=== PATIENT | female | born 1955 | race Caucasian/White ===

== ENCOUNTER → 2018-12-06 15:23 | Outpatient (CLI) | payer OTHER, SELFPAY ==
--- NOTE | 2018-12-06 | DI.RAD.S_ITS ---
PROCEDURE: XR TIBIA FIBULA RT 2V INDICATIONS: NEUROFIBRAMATOSIS TECHNIQUE: 2 views of the tibia and fibula were acquired. COMPARISON: None. FINDINGS: Bones: No fractures or dislocations. No suspicious bony lesions. Soft tissues: Posterior mid calf soft tissue swelling IMPRESSION: Posterior mid calf swelling. Further evaluation of the soft tissues could be performed with contrast-enhanced MRI as clinically warranted. Dictated by: Heath Taylor M.D. on 12/06/2018 at 16:05 Approved by: Heath Taylor M.D. on 12/06/2018 at 16:06
== END ==
PROVIDERS: Family Provider Family Medicine; PCP Family Medicine; Visit Provider Family Medicine
DX: Q85.00 Neurofibromatosis, unspecified (principal); M79.89 Other specified soft tissue disorders
CPT/HCPCS: 73590

== ENCOUNTER → 2019-01-14 12:53 | Outpatient (CLI) | payer OTHER, SELFPAY ==
--- NOTE | 2019-01-14 | DI.MRI.S_ITS ---
PROCEDURE: MR LOWER LEG LT WO/W CON INDICATIONS: Neurofibramatosis TECHNIQUE: Noncontrast coronal T1 spin echo and STIR, sagittal T1 spin echo with fat saturation and STIR, axial T1 spin echo and T2 fast spin echo with fat saturation. After the administration of contrast, axial/sagittal/coronal T1 spin echo with fat saturation through the left lower leg. COMPARISON: [facility], CR, XR TIBIA FIBULA LT 2V, 12/06/2018, 15:30. FINDINGS: Image quality: Diagnostic. Bones: The visualized bone marrow demonstrates normal signal on all sequences. The overlying cortex appears intact. No abnormal intraosseous enhancement. Soft tissues: 2 ovoid heterogeneous mass is identified along the proximal to mid aspect of the left lower leg. Within the anterior compartment, centered along the anterior tibial neurovascular bundle, there is an ovoid lesion identified along the proximal aspect of the left lower leg, which demonstrates relatively homogeneous increased signal on the fluid sensitive sequences that demonstrates intermediate to low signal on the T1 images and corresponding heterogeneous enhancement predominantly seen along the periphery. This lesion measures at least 7.6 cm craniocaudal by 3.6 cm AP by 3.3 cm transverse (image 17, series 11 and image 24, series 13). The other lesion demonstrates very similar imaging characteristics and has an ovoid appearance and is located along the lateral aspect of the mid half, centered within the lateral gastrocnemius muscle, which measures approximately 5.2 cm craniocaudal by 3.5 cm AP by 3.9 cm transverse (see image 6, series 11 and image 33, series 13). Both of these structures demonstrate subtle proximal and distal tapering. There is slight muscle edema identified along the proximal and distal margins of the lesion within the anterior compartment and the lesion within the posterior compartment. No additional masses or lesions are evident. Included portions of the right lower leg are unremarkable. No loculated or drainable fluid collections are identified. Please note that the ligamentous, tendinous, and cartilaginous structures of the knee and ankle are not adequately evaluated more completely included on this examination. IMPRESSION: 1. There are 2 solid lesions identified along the proximal to mid aspect of the left lower leg, which correlate with the abnormal appearance on the conventional radiograph. These lesions are most likely related to the patient's neurofibromatosis and probably represent peripheral nerve sheath tumors. However, soft tissue sarcoma cannot be excluded. Please consider biopsy for definitive characterization. 3 month followup MR imaging with contrast is recommended. 2. No suspicious bony lesions. Dictated by: Darryn Issa M.D. on 01/14/2019 at 15:51 Approved by: Darryn Issa M.D. on 01/14/2019 at 16:01
== END ==
PROVIDERS: Family Provider Family Medicine; PCP Family Medicine; Visit Provider Family Medicine
DX: Q85.00 Neurofibromatosis, unspecified (principal)
CPT/HCPCS: 73720; A9579

== ENCOUNTER → 2019-01-29 16:14 | Outpatient (CLI) | payer OTHER, SELFPAY ==
--- NOTE | 2019-01-29 | DI.US.S_ITS ---
PROCEDURE: US THYROID INDICATIONS: THYROTOXOSIS, UNSPECIFIED TECHNIQUE: Real-time scanning was performed of the thyroid gland, with image documentation. COMPARISON: None. FINDINGS: Right: Thyroid lobe measures 4.8 x 1.9 x 2.1 cm, and is diffusely heterogeneous in echotexture. Left: Thyroid lobe measures 4.5 x 2.0 x 2.0 cm, and is diffusely heterogeneous in echotexture. Isthmus: 3.0 mm thick. IMPRESSION: Diffusely heterogeneous thyroid. No focal nodularity. Dictated by: Hemal GUZMAN Interpreted: Che Whitfield MD on 01/29/2019 at 17:34 Approved by: Che Whitfield M.D. on 01/29/2019 at 17:59
== END ==
PROVIDERS: PCP Family Medicine; Visit Provider Family Medicine
DX: E05.90 Thyrotoxicosis, unspecified without thyrotoxic crisis or storm (principal)
CPT/HCPCS: 76536

== ENCOUNTER → 2019-05-14 08:02 | Outpatient (CLI) | payer OTHER, SELFPAY ==
--- NOTE | 2019-05-14 | DI.MRI.S_ITS ---
PROCEDURE: MR THORACIC SPINE WO/W CON INDICATIONS: Neurofibromatosis, unspecified TECHNIQUE: Noncontrast sagittal T1 spin echo and T2 fast spin echo, sagittal STIR, axial T1 and T2 fast spin echo through the thoracic spine. After the administration of contrast, axial and sagittal T1 spin echo with fat saturation through the thoracic spine. COMPARISON: [facility], CT, SOFT TISSUE NECK W CONTRAST, 01/17/2007, 8:35. [facility], MR, T-SPINE WITH AND WITHOUT CONTR, 12/03/2009, 17:24. FINDINGS: Image quality: Excellent. Alignment and curvature: There is normal bony alignment. Marrow: Marrow is of normal overall signal. No acute vertebral body compression fractures. Intraosseous hemangiomas present at T8 and at T12. Spinal cord: Visualized spinal cord is of normal signal and size, without abnormal enhancement. Paraspinous soft tissues: There are multiple paraspinous soft tissue masses are includin. A peripherally enhancing, centrally T2 hyperintense/T1 hypointense left apical mass which measures 3.9 x 4.0 x 5.8 cm (previously measured 2.3 x 2.0 x 3.3 cm on the comparison MRI dated 12/03/09). There is bony erosion of the posterior aspect of the adjacent rib. 2. A right homogeneously enhancing subdiaphragmatic mass which measures 5.2 x 4.9 x 3.6 cm (previously measured 2.6 x 1.7 cm in the axial plane). There is erosion of the posterior aspect of the adjacent rib. 3. A peripherally enhancing, centrally T2 hyperintense/T1 hypointense lesion within the right renal fossa which measures 10.5 x 8.0 x 8.6 cm (previously measured 4.4 x 3.3 cm in axial plane). This displaces the kidney anteriorly and inferiorly. 4. 5 mm diameter enhancing mass within the thecal sac at the level of L2. This region was not evaluated on the prior MRI from 12/03/09. 5. 4 mm in diameter left-sided intrathecal enhancing mass adjacent to the cauda equina at T12, unchanged from the prior study (Series 16, image 24). 6. Right-sided 4 mm diameter enhancing mass adjacent to the cauda which is slightly increased from 3 mm on the prior study (316, image 23). There is a right-sided homogeneously enhancing T2 hyperintense, T1 hypointense mass at the carotid bifurcation which measures 1.8 x 2.0 cm on the axial images (series 10, image 10). This measured 1.7 x 1.6 cm on the study dated 01/17/07. Miscellaneous: Central canal and foramina appear widely patent at all scanned levels. IMPRESSION: 1. Multiple paraspinous soft tissue masses as described above, all of which have increased in size when compared with the prior MRI dated 12/03/09. 2. Subcentimeter enhancing intrathecal mass lesions, 2 of which were previously characterized and are similar or slightly increased in size to the prior study. 3. No canal stenosis or foraminal narrowing. Normal spinal alignment. 4. Homogeneously enhancing mass at the right carotid bifurcation, incompletely characterized on this study. This is slightly increased when compared with the prior CT dated 01/17/07, and likely represents a neurofibroma. Dictated by: Kylee Crain M.D. on 05/14/2019 at 10:15 Approved by: Kylee Crain M.D. on 05/14/2019 at 11:24
--- NOTE | 2019-05-14 | DI.MRI.S_ITS ---
PROCEDURE: MR LUMBAR SPINE WO/W CON INDICATIONS: Neurofibromatosis, unspecified TECHNIQUE: Noncontrast sagittal T1 spin echo and T2 fast spin echo, sagittal STIR, axial T1 and T2 fast spin echo through the lumbar spine. In cases with scoliosis, additional coronal T2 fast spin echo may be performed. After the administration of contrast, sagittal and axial T1 spin echo with fat saturation through the lumbar spine. COMPARISON: None. FINDINGS: Image quality: Excellent. Alignment and curvature: There is normal bony alignment. Marrow: Marrow is of normal overall signal. No acute vertebral body compression fractures. No suspicious marrow enhancement. Spinal cord: Conus medullaris terminates at the T12 level. Visualized spinal cord demonstrates normal signal, without suspicious enhancement. Paraspinous soft tissues: A predominantly cystic, peripherally enhancing mass is partially characterized within the right renal fossa and is better characterized on the MRI of the thoracic spine from the same date. Visualized portions of the kidneys have a normal appearance with subcentimeter cortical cystic lesions present. No hydronephrosis. The right ovary is visualized adjacent to the psoas musculature and is grossly unremarkable. An ill-defined T2 hyperintense, T1 hypointense heterogeneously enhancing mass is present within the left psoas musculature which may represent a small neurofibroma (series 10, image 23). A 0.8 cm in diameter enhancing mass is present within the left paraspinous musculature suggesting small neurofibroma (series 10, image 7). Left-sided intrathecal enhancing subcentimeter mass lesions at T12 and L2 characterized on the associated T-spine from the same date are redemonstrated. A right-sided 4 mm and a central 4 mm enhancing intrathecal mass are visualized at L2-3, likely representing small fibroadenomas. Similarly, a homogeneously enhancing circumscribed 8mm diameter intrathecal mass is present at L4-5 suggesting a intrathecal neurofibroma. 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 L1-L2: Normal appearance. L2-L3: Mild disc desiccation and height loss. Broad-based disc bulge. Mild facet ligamentum flavum hypertrophy. Mild canal stenosis. No neural foraminal stenosis. L3-L4: Mild disc desiccation. Broad-based disc bulge. Mild facet ligamentum flavum hypertrophy. No canal stenosis. Mild bilateral neuroforaminal stenosis. L4-L5: Moderate desiccation and height loss. Broad-based disc bulge. Moderate facet ligamentum flavum hypertrophy. Mild canal stenosis. Mild left and moderate right neuroforaminal stenosis. L5-S1: Moderate disc desiccation and height loss. Moderate facet ligamentum flavum hypertrophy. No canal stenosis. Mild left and moderate right neural foraminal stenosis. IMPRESSION: 1. Disc desiccation and height loss throughout the lumbar spine most severe at L4-5 and L5-S1. 2. Moderate right neuroforaminal stenosis at L4-5 and L5-S1. 3. Mild canal stenosis of the lumbar spine at L4-5. 4. Multiple subcentimeter intrathecal enhancing mass lesions consistent with neurofibromas. 5. 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 Dictated by: Kylee Crain M.D. on 05/14/2019 at 11:27 Approved by: Kylee Crain M.D. on 05/14/2019 at 11:35
== END ==
PROVIDERS: PCP Family Medicine; Visit Provider Neurological Surgery
DX: Q85.00 Neurofibromatosis, unspecified (principal); M48.061 Spinal stenosis, lumbar region without neurogenic claudication; M48.07 Spinal stenosis, lumbosacral region
CPT/HCPCS: 72157; 72158; A9579

== ENCOUNTER → 2020-01-21 10:57 | Outpatient (CLI) | payer OTHER, SELFPAY ==
--- NOTE | 2020-01-21 10:58 | DI.RAD.S_ITS ---
PROCEDURE: XR ANKLE LT MIN 3V INDICATIONS: pain in left ankle TECHNIQUE: 3 views of the ankle were acquired. COMPARISON: [facility], , ANKLE 2 VIEWS LEFT, 02/25/2017, 21:01. FINDINGS: Bones: Fracture of the distal fibula at the level of the syndesmosis. Near anatomic alignment. No dislocations. Ankle mortise is normally aligned. No suspicious bony lesions. Small plantar calcaneal spur. Soft tissues: Swelling at the lateral malleolus. No tibiotalar joint effusion. Achilles tendon appears normal. IMPRESSION: Fracture of the distal fibula at the level of the syndesmosis. Near anatomic alignment. Dictated by: Guevara Granger M.D. on 01/21/2020 at 10:12 Approved by: Guevara Granger M.D. on 01/21/2020 at 10:13
== END ==
PROVIDERS: PCP Family Medicine; Referring Provider Family Medicine; Visit Provider Nurse Practitioner
DX: M25.572 Pain in left ankle and joints of left foot (principal); S82.832A Other fracture of upper and lower end of left fibula, initial encounter for closed fracture
CPT/HCPCS: 73610

== ENCOUNTER → 2020-05-11 07:16 | Outpatient (CLI) | payer OTHER, SELFPAY ==
[2020-05-11 07:44] LABS: Add Manual Diff / Slide Review NO; Basophils Absolute Auto 100 /uL (0-100); Basophils Percent Auto 1.4 % (0-2); Eosinophils Absolute Auto 300 /uL (0-450); Eosinophils Percent Auto 5.3 % (2-4); Hematocrit 41.1 % (36-46); Hemoglobin 13.7 g/dL (12.0-16.0); Lymphocytes Absolute Auto 2100 /uL (1100-4500); Lymphocytes Percent Auto 40.6 % (25-40); Mean Corpuscular HGB Conc 33.5 % (30-36); Mean Corpuscular Hemoglobin 30.6 PG (26-34); Mean Corpuscular Volume 91.3 fL (80-100); Monocytes Absolute Auto 500 /uL (0-900); Monocytes Percent Auto 9.5 % (3-14); Neutrophils Absolute Auto 2200 /uL (1500-7000); Neutrophils Percent Auto 43.2 % (50-75); Platelet Count 284 X10^3/uL (150-400); Red Cell Distribution Width 13.1 % (11.6-14.8); White Blood Cell Count 5.2 X10^3/uL (4.5-11.0)
[2020-05-11 07:56] LABS: Alanine Aminotransferase 23 IU/L (<35); Albumin 4.2 g/dL (3.5-5.0); Albumin Globulin Ratio 1.3 (1.0-2.8); Alkaline Phosphatase 109 U/L (38-126); Aspartate Aminotransferase 30 IU/L (14-36); BUN Creatinine Ratio 23.2 (6-22); Bilirubin Total 0.4 mg/dL (0.2-1.3); Blood Urea Nitrogen 13 mg/dL (7-17); Calcium 9.2 mg/dL (8.4-10.2); Carbon Dioxide 29 mmol/L (22-32); Chloride 106 mmol/L (98-107); Cholesterol 166 mg/dL (140-199); Estimated Glomerular Filt Rate > 60.0 mL/min (>60); Globulin 3.3 g/dL (1.7-4.1); Glucose 98 mg/dL (80-110); HDL Cholesterol 71 mg/dL (40-60); HEMOLYSIS < 15 (0-50); LDL Cholesterol Calculated 82 mg/dL (<100); Sodium 140 mmol/L (137-145); Total Protein 7.5 g/dL (6.3-8.2); Triglycerides 67 mg/dL (35-150)
[2020-05-11 08:43] LABS: Free T4, Direct Thyroxine 0.86 ng/dL (0.78-2.19); Vitamin D 25 Hydroxy (D3) 31.4 ng/mL (30.0-100.0)
[2020-05-11 08:57] LABS: Thyroid Stimulating Hormone 5.47 uIU/mL (0.47-4.68)
[2020-05-12 06:46] LABS: Triiodothyronine T3 Total 106 ng/dL (71-180)
== END ==
PROVIDERS: PCP Internal Medicine; Referring Provider Internal Medicine; Visit Provider Internal Medicine
DX: Z13.220 Encounter for screening for lipoid disorders (principal)
CPT/HCPCS: 36415; 80053; 80061; 82306; 84439; 84443; 84480; 85025

== ENCOUNTER → 2020-06-24 15:58 | Outpatient (CLI) | payer OTHER, SELFPAY ==
--- NOTE | 2020-06-24 | DI.MRI.S_ITS ---
PROCEDURE: MR CERVICAL SPINE WO/W CON INDICATIONS: BENIGN NEOPLASM TECHNIQUE: Noncontrast sagittal T1 spin echo and T2 fast spin echo, sagittal STIR, foraminal oblique sagittal T2 fast spin echo, axial gradient echo or T2 fast spin echo through the cervical spine. After the administration of contrast, axial and sagittal T1 spin echo with fat saturation through the cervical spine. COMPARISON: [facility], MR, MR THORACIC SPINE WO/W CON, 05/14/2019, 8:16. [facility], MR, MR LUMBAR SPINE WO/W CON, 06/24/2020, 17:30. [facility], MR, MR THORACIC SPINE WO/W CON, 06/24/2020, 16:59. [facility], MR, C-SPINE WITH&WITHOUT CONTRAST, 12/03/2009, 17:08. FINDINGS: Image quality: Excellent. Alignment and curvature: Reversal of the normal cervical lordosis is seen, with the apex at the C5 level. There is minimal anterolisthesis seen at the C4-C5 level. Minimal retrolisthesis is seen at C5-C6. Marrow: Marrow is normal in overall signal, without suspicious enhancement. Spinal cord: Visualized spinal cord has normal size and signal. No cerebellar tonsillar herniation. No abnormal intramedullary enhancement. Paraspinous soft tissues: There is a left-sided thoracic mass partially seen. On the prior cervical spine MRI from 2009, there was note made a mass involving the left supraclavicular region. This is not definitely seen on the current study. Note is made of prominent opacification of the left maxillary sinus. C2-3: The disc height is well-preserved. Loss of disc signal is seen at this level. A mild degree of generalized disc osteophyte complex is seen. Moderate facet joint hypertrophy is seen. No significant neural foraminal or central canal narrowing can be seen. C3-4: The disc height is well-preserved. Loss of disc signal is seen at this level. A mild degree of generalized disc osteophyte complex is seen. Moderate facet joint hypertrophy is seen. There is mild right-sided and no left-sided neural foraminal narrowing seen. No significant central canal narrowing is seen. C4-5: Mild loss of disc height is seen. Loss of disc signal is seen. Moderate disc osteophyte complex is seen, which is eccentric to the right. There is moderate to prominent right-sided and mild left-sided neural foraminal narrowing seen. There is moderate right-sided and no left-sided neural foraminal narrowing seen. Mild to moderate central canal narrowing is seen. C5-6: At least moderate loss of disc height and disc signal can be seen. At least moderate disc osteophyte complex is seen. Uncovertebral joint hypertrophy is seen at this level. Moderate facet joint hypertrophy is seen. There is at least moderate bilateral neural foraminal narrowing seen, left worse than right. Moderate central canal narrowing is seen. There is associated mass effect upon the ventral spinal cord. C6-7: The disc height is well-preserved. Loss of disc signal is seen at this level. A mild degree of generalized disc osteophyte complex is seen. Mild to moderate facet hypertrophy is seen. No significant neural foraminal or central canal narrowing can be seen. C7-T1: No significant abnormality is seen. IMPRESSION: Multiple levels of cervical spine degenerative change are seen, which are worst at the C5-C6 level. These degenerative changes have progressed compared to 2010. The previously seen left supraclavicular mass is not well seen on the current study. If there is strong clinical concern for a mass within this region, please consider a follow-up soft tissue neck CT with IV contrast. Left-sided thoracic mass seen. Please see the accompanying thoracic spine MRI report. Prominent opacification of the left maxillary sinus can be seen. Please correlate with paranasal sinus disease. Dictated by: Bruce Marquez M.D. on 06/25/2020 at 16:40 Approved by: Bruce Marquez M.D. on 06/25/2020 at 16:51
--- NOTE | 2020-06-24 16:00 | DI.MRI.S_ITS ---
PROCEDURE: MR THORACIC SPINE WO/W CON INDICATIONS: Neurofibromatosis, Benign neoplasm of peripheral n TECHNIQUE: Noncontrast sagittal T1 spin echo and T2 fast spin echo, sagittal STIR, axial T1 and T2 fast spin echo through the thoracic spine. After the administration of contrast, axial and sagittal T1 spin echo with fat saturation through the thoracic spine. COMPARISON: [facility], MR, T-SPINE WITH AND WITHOUT CONTR, 12/03/2009, 17:24. [facility], MR, MR LUMBAR SPINE WO/W CON, 06/24/2020, 17:30. [facility], MR, MR CERVICAL SPINE WO/W CON, 06/24/2020, 16:36. [facility], MR, MR THORACIC SPINE WO/W CON, 05/14/2019, 8:16. FINDINGS: Image quality: Excellent. Alignment and curvature: There is normal bony alignment. Marrow: Marrow is of normal overall signal. Scattered foci are seen, which are hyperintense on T1-weighted and T2-weighted imaging, which are most consistent with benign vertebral body hemangiomas. No acute vertebral body compression fractures. Spinal cord: Visualized spinal cord is of normal signal and size, without abnormal enhancement. There is intrathecal nodule seen on the right at the T12 level that measures 5-6 mm, as on series 14, image 18. On the prior study, this measured 4 mm. An additional enhancing nodule can be seen along the posterior aspect of the nerve roots at the L2 level, as on series 6, image 32 measuring 8 mm. On the prior study, this measured up to 5 mm. Paraspinous soft tissues: Numerous masses are again seen, which are as follows, from superior to inferior: There is a mildly T2 hyperintense, mildly enhancing lesion partially seen involving the right paratracheal neck, adjacent to the thyroid, which measures 2.2 x 2.1 cm in greatest axial dimension, as on series 15, image 14 and on series 7, image 15. This is minimally increased in size compared to 2019. Within the left paraspinous region at the T2 level, just anterior to the ribs, there is an ovoid mass that measures 5.5 by 4.4 cm in greatest axial dimension, which measures 4 x 5.1 cm in 2019, when measured in a similar fashion. Moderate rim enhancement can be seen. On the right, just anterior to the 9th rib, there is a heterogeneous mass which demonstrates an irregular, stippled appearance on the T2 images and demonstrates prominent heterogeneous enhancement. This measures 3.8 by 5.3 cm in greatest axial dimension, which is slightly increased in size compared to 2019, when it measured 3.6 x 4.9 cm, when measured in a similar fashion. Just inferior to this lesion, there is a partially visualized prominent mass that demonstrates T2 hyperintensity within its midportion, which measures at least 9 by 6 cm in greatest axial dimension. This is centered at the approximate T12 level. There is moderate rim enhancement seen. On the prior study, this measured 8 x 8.6 cm in greatest axial dimension. Miscellaneous: Generalized mild degenerative changes are seen, including mild disc space narrowing at the T11-T12 level, without significant neural foraminal or central canal narrowing. IMPRESSION: Numerous paraspinous nodules are seen, which have each increased in size compared to 2019. The imaging appearance is consistent with the given clinical history of neurofibromas. There is faint visualization of intrathecal nodules also seen inferiorly. Please see the accompanying lumbar spine report. Dictated by: Bruce Marquez M.D. on 06/25/2020 at 16:56 Approved by: Bruce Marquez M.D. on 06/25/2020 at 17:13
--- NOTE | 2020-06-24 16:00 | DI.MRI.S_ITS ---
PROCEDURE: MR LUMBAR SPINE WO/W CON INDICATIONS: Neurofibromatosis, Benign neoplasm of peripheral n TECHNIQUE: Noncontrast sagittal T1 spin echo and T2 fast spin echo, sagittal STIR, axial T1 and T2 fast spin echo through the lumbar spine. In cases with scoliosis, additional coronal T2 fast spin echo may be performed. After the administration of contrast, sagittal and axial T1 spin echo with fat saturation through the lumbar spine. COMPARISON: [facility], MR, MR THORACIC SPINE WO/W CON, 06/24/2020, 16:59. [facility], MR, MR CERVICAL SPINE WO/W CON, 06/24/2020, 16:36. FINDINGS: Image quality: This examination is limited by involuntary motion artifact. Alignment and curvature: There is minimal retrolisthesis at L5-S1. Marrow: Marrow is of normal overall signal. No acute vertebral body compression fractures. No suspicious marrow enhancement. Spinal cord: Conus medullaris terminates at the L1 level. Visualized spinal cord demonstrates normal signal, without suspicious enhancement. Numerous enhancing intrathecal nodules are seen, including at T11, L1, L2, L2-L3, L3-L4, L4, and L4-L5. Compared to 2019, these are minimally more prominent, with the largest seen at the L4 level measuring up to 11 mm. Paraspinous soft tissues: No paravertebral masses or abnormal enhancement. Numerous paraspinous masses are seen, from superior to inferior: Adjacent to the left L1 spinous process, on series 10, image 11, there is enhancing nodule that measures 7 mm, which is not significantly changed compared to the prior examination. There is partial visualization of a 2 right lower thoracic masses. Please see the accompanying thoracic spine report. Within the left medial psoas on series 10, image 27, there is a mildly enhancing nodule seen that measures up to 11 mm, which is similar to the prior study, when measured in a similar fashion. Just lateral to the right psoas muscle, there is a heterogeneous enhancing mass that measures 4 x 3.3 cm in greatest axial dimension, as on series 10, image 28. This is similar to the prior study. There is partial visualization of a mass on the right side at the S2-S3 level anteriorly, as on series 5, image 6, measuring at least 2.3 x 2 cm. This is increased in size compared to the prior. This mass demonstrates enhancement and its appearance is not compatible with a Tarlov cyst. T12-L1: Moderate loss of disc height is seen. Loss of disc signal is seen. Minimal disc bulge is seen. No significant neural foraminal or central canal narrowing can be seen. Minimal progression compared to the prior. L1-L2: Normal appearance. L2-L3: The disc height is well-preserved. Loss of disc signal is seen at this level. Mild to moderate disc bulge is seen, which is slightly eccentric to the left. There is a central/left disc protrusion. Mild facet joint hypertrophy is seen. There is moderate left-sided and no significant right-sided neural foraminal narrowing seen. Mild central canal narrowing is seen. When comparison is made with the prior examination, these findings are similar. L3-L4: The disc height is well-preserved. Loss of disc signal is seen at this level. Mild to moderate disc bulge is seen, which is eccentric to the left. There is a mild left lateral recess disc extrusion, with mild superior migration of the disc material. Moderate facet joint hypertrophy is seen. Mild bilateral neural foraminal narrowing is seen. Mild central canal narrowing is seen. Slight progression compared to the prior. L4-L5: Mild loss of disc height is seen. Loss of disc signal is seen. Moderate disc bulge is seen, which is eccentric to the right. There is a central disc protrusion. Moderate facet joint hypertrophy is seen. There is at least moderate right-sided and mild left-sided neural foraminal narrowing seen. Mild to moderate central canal narrowing can be seen. When comparison is made with the prior examination, these findings are similar. L5-S1: Mild loss of disc height is seen. Loss of disc signal is seen. Mild to moderate disc bulge is seen. Moderate facet joint hypertrophy is seen. Moderate bilateral neural foraminal narrowing is seen. Minimal to mild central canal narrowing is seen. When comparison is made with the prior examination, these findings are similar. IMPRESSION: Several intrathecal enhancing nodules are seen, which are attributed to neurofibromas and are overall minimally increased in size compared to the prior examination. Several paraspinous enhancing masses are seen, which are consistent with the given clinical history of neurofibromas. One of these is increased in size compared to the prior. Multiple levels of lumbar spine degenerative change are seen, which are slightly progressed at L3-L4 compared to 2019, yet otherwise appear similar. Dictated by: Bruce Marquez M.D. on 06/25/2020 at 17:13 Approved by: Bruce Marquez M.D. on 06/25/2020 at 17:27
== END ==
PROVIDERS: PCP Internal Medicine; Referring Provider Neurological Surgery; Visit Provider Neurological Surgery
DX: Q85.00 Neurofibromatosis, unspecified (principal); D36.10 Benign neoplasm of peripheral nerves and autonomic nervous system, unspecified; M47.812 Spondylosis without myelopathy or radiculopathy, cervical region; M47.816 Spondylosis without myelopathy or radiculopathy, lumbar region
CPT/HCPCS: 72156; 72157; 72158; A9579

== ENCOUNTER → 2020-06-25 15:09 | Outpatient (CLI) | payer OTHER, SELFPAY ==
--- NOTE | 2020-06-25 15:11 | DI.MRI.S_ITS ---
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 After the administration of contrast, axial/sagittal/coronal T1 spin echo with fat saturation through the left lower leg. COMPARISON: [facility], MR, MR LOWER LEG LT WO/W CON, 01/14/2019, 13:04. FINDINGS: Image quality: Excellent. Bones: The visualized bone marrow demonstrates normal signal on all sequences. The overlying cortex appears intact. Soft tissues: There is redemonstration of multiple left lower extremity enhancing and heterogeneous soft tissue masses. Overall, these are grossly unchanged since 01/14/19. The largest of which measures 4.0 x 3.4 x 7.9 cm, previously 3.4 x 3.4 x 7.6 cm, within the anterior compartment of the lower leg. There are well defined margins and heterogeneous internal signal and irregular enhancement. Similar appearing mass involving the lateral gastrocnemius muscle region also grossly unchanged. Additional enhancing mass seen at the level of the knee adjacent to the origin of the lateral gastrocnemius muscle is also grossly unchanged (not previously mentioned on the prior study) IMPRESSION: Overall, grossly unchanged multiple left lower extremity heterogeneous and enhancing mass lesions as detailed above since 01/14/19. Dictated by: Heath Taylor M.D. on 06/26/2020 at 9:53 Approved by: Heath Taylor M.D. on 06/26/2020 at 10:20
== END ==
PROVIDERS: PCP Internal Medicine; Referring Provider Internal Medicine; Visit Provider Internal Medicine
DX: Q85.00 Neurofibromatosis, unspecified (principal); D36.10 Benign neoplasm of peripheral nerves and autonomic nervous system, unspecified; Z13.820 Encounter for screening for osteoporosis; M85.851 Other specified disorders of bone density and structure, right thigh; Z78.0 Asymptomatic menopausal state; E07.9 Disorder of thyroid, unspecified; Z82.62 Family history of osteoporosis
CPT/HCPCS: 73720; 77080; A9579

== ENCOUNTER → 2021-10-13 08:06 | Outpatient (CLI) | payer OTHER, SELFPAY | PROVIDERS: PCP Internal Medicine; Visit Provider Physician Assistant | DX: J02.9 Acute pharyngitis, unspecified (principal) | CPT/HCPCS: 87070 ==

== ENCOUNTER → 2021-10-20 06:36 | Outpatient (CLI) | payer OTHER, SELFPAY ==
[2021-10-20 08:16] LABS: Appearance Urine UA CLEAR; Bilirubin Urine UA NEGATIVE (NEGATIVE); Color Urine UA YELLOW; Glucose Urine UA NEGATIVE (Negative); Ketones Urine UA NEGATIVE (NEGATIVE); Leukocyte Esterase Urine UA 1+ (NEGATIVE); Nitrite Urine UA NEGATIVE (Negative); Occult Blood Urine UA 1+ (Negative); Protein Urine UA NEGATIVE (Negative); Specific Gravity Urine UA <=1.005 (1.000-1.035); Urobilinogen Urine UA 0.2 E.U./dL (0.2)
[2021-10-20 08:19] LABS: pH Urine UA 6.5 (4.5-8.0)
[2021-10-20 08:21] LABS: Bacteria Urine None Seen; Culture Indicated Urine Specimen Cultured; RBC Urine 0-1/HPF (0-5/HPF); WBC Urine 5-10/HPF (0-5/HPF)
== END ==
PROVIDERS: PCP Physician Assistant; Referring Provider Physician Assistant; Visit Provider Physician Assistant
DX: N39.0 Urinary tract infection, site not specified (principal)
CPT/HCPCS: 81001; 87077; 87086; 87147

== ENCOUNTER → 2022-03-19 10:53 | Outpatient (CLI) | payer OTHER, SELFPAY ==
--- NOTE | 2022-03-19 | DI.MRI.S_ITS ---
PROCEDURE: MR LUMBAR SPINE WO/W CON INDICATIONS: SCHWANNOMA TECHNIQUE: Noncontrast sagittal T1 spin echo and T2 fast spin echo, sagittal STIR, axial T1 and T2 fast spin echo through the lumbar spine. In cases with scoliosis, additional coronal T2 fast spin echo may be performed. After the administration of contrast, sagittal and axial T1 spin echo with fat saturation through the lumbar spine. COMPARISON: [facility], MR, MR LUMBAR SPINE WO/W CON, 06/24/2020, 17:30. [facility], MR, MR LUMBAR SPINE WO/W CON, 05/14/2019, 8:16. FINDINGS: Image quality: Excellent. Alignment and curvature: There is normal bony alignment. Marrow: Marrow is of normal overall signal. No acute vertebral body compression fractures. No suspicious marrow enhancement. Spinal cord: Conus medullaris terminates at the L1 level. Visualized spinal cord demonstrates normal signal, without suspicious enhancement. Several intrathecal, excellent medullary masses are seen. At the T11-T12 level, there is an 8 mm nodule seen. At the L4 level, there are enhancing masses that are considered to be intrathecal at extramedullary, with the more superior mass measuring 15 x 15 x 20 mm and the more inferior mass measuring 6 x 6 x 6 mm. Additional smaller lesions are seen. Overall, these lesions are not significantly changed compared to the prior. Paraspinous soft tissues: There is a rim enhancing cyst seen involving the right retroperitoneum, which measures at least 9 cm, which is similar to 202. Inferior to this cyst, there is a right retroperitoneal cystic and solid mass seen that measures 3.7 x 2.7 cm in greatest axial dimension, which is also similar to 202. Along the neural foraminal S2-S3 level on the right, there is 2.3 x 2.3 cm in greatest axial dimension, compared to 2 x 2 cm in greatest axial dimension on the prior. Multiple levels of underlying degenerative change are seen, which are similar to 202. 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 However, there is a given history of schwannoma. The majority these are stable compared to the prior examination, although the lesion on the right at the S2-3 level is increased in size compared to 202. Dictated by: Bruce Marquez M.D. on 03/21/2022 at 10:19 Approved by: Bruce Marquez M.D. on 03/21/2022 at 10:53
== END ==
PROVIDERS: Referring Provider Neurological Surgery; Visit Provider Neurological Surgery
DX: D36.17 Benign neoplasm of peripheral nerves and autonomic nervous system of trunk, unspecified (principal)
CPT/HCPCS: 72158

== ENCOUNTER → 2022-04-13 07:43 | Outpatient (CLI) | payer OTHER, SELFPAY ==
[2022-04-13 09:19] LABS: Hematocrit 39.5 % (36-46); Hemoglobin 13.5 g/dL (12.0-16.0); Mean Corpuscular HGB Conc 34.2 % (30-36); Mean Corpuscular Hemoglobin 30.4 PG (26-34); Platelet Count 267 X10^3/uL (150-400); Red Blood Cell Count 4.44 X10^6/uL (4.0-5.2); White Blood Cell Count 5.2 X10^3/uL (4.5-11.0)
[2022-04-13 09:26] LABS: Alanine Aminotransferase 27 IU/L (<35); Albumin 4.2 g/dL (3.5-5.0); Albumin Globulin Ratio 1.3 (1.0-2.8); Alkaline Phosphatase 103 U/L (38-126); Aspartate Aminotransferase 31 IU/L (14-36); BUN Creatinine Ratio 17.5 (6-22); Bilirubin Total 0.4 mg/dL (0.2-1.3); Blood Urea Nitrogen 11 mg/dL (7-17); Carbon Dioxide 28 mmol/L (22-32); Chloride 104 mmol/L (98-107); Cholesterol 175 mg/dL (140-199); Estimated Glomerular Filt Rate > 60 mL/min (>60); Globulin 3.3 g/dL (1.7-4.1); Glucose 76 mg/dL (80-110); HDL Cholesterol 63 mg/dL (40-60); HEMOLYSIS < 15 (0-50); LDL Cholesterol Calculated 99 mg/dL (<100); Potassium 3.9 mmol/L (3.4-5.1); Sodium 140 mmol/L (137-145); Total Protein 7.5 g/dL (6.3-8.2); Triglycerides 65 mg/dL (35-150)
[2022-04-13 09:58] LABS: TSH w/ Reflex to FT4 3.38 uIU/mL (0.47-4.68)
== END ==
PROVIDERS: PCP Registered Nurse Diabetes Educator; Referring Provider Registered Nurse Diabetes Educator; Visit Provider Registered Nurse Diabetes Educator
DX: E03.9 Hypothyroidism, unspecified (principal)
CPT/HCPCS: 36415; 80053; 80061; 84443; 85027

== ENCOUNTER → 2022-06-04 12:42 | Outpatient (CLI) | payer OTHER, SELFPAY ==
--- NOTE | 2022-06-04 | DI.MRI.S_ITS ---
PROCEDURE: MR CERVICAL SPINE WO/W CON INDICATIONS: Schwannomatosis TECHNIQUE: Noncontrast sagittal T1 spin echo and T2 fast spin echo, sagittal STIR, foraminal oblique sagittal T2 fast spin echo, axial gradient echo or T2 fast spin echo through the cervical spine. After the administration of contrast, axial and sagittal T1 spin echo with fat saturation through the cervical spine. COMPARISON: [facility], MR, MR CERVICAL SPINE WO/W CON, 06/24/2020, 16:36. FINDINGS: Small focus of extradural enhancement in the right posterior spinal canal at the C3 level measuring 3 mm with intrinsic T2 signal (series 9, image 7 and series 10, image 7), consistent with a schwannoma given the provided clinical history. This is unchanged from 06/24/2020 exam. Additional focus of extradural enhancement measuring 6 mm with intrinsic T2 signal on series 10, image 34 and series 9, image 10 is also consistent with schwannoma. This has increased in size from approximately 3 mm on the previous exam. This now produces mild spinal canal stenosis with flattening and indentation of the left posterolateral cord (series 5, image 32, for example). No additional focus of abnormal enhancement identified. Anterolisthesis of C4 on C5 measuring 3 mm. Degenerative straightening and reversal of the usual cervical lordosis. Vertebral body heights maintained. No suspicious focal marrow signal abnormality. Discogenic marrow edema at C5-C6. No cord signal abnormality. Regional soft tissues normal. At C2-C3, no spinal canal or neural foraminal stenosis. At C3-C4, no spinal canal or neural foraminal narrowing. Lhol-ve-[id number] facet hypertrophy. At C4-C5, posterior disc osteophyte complex flattens the ventral cord. Facet and uncovertebral hypertrophy combine to produce mild bilateral neural foraminal narrowing. At C5-C6, mild spinal canal stenosis due to disc osteophyte complex flattening the ventral cord. Facet and uncovertebral hypertrophy combine to produce moderate bilateral neural foraminal narrowing. At C6-C7, no spinal canal stenosis or neural foraminal narrowing. At C7-T1, moderate spinal canal stenosis due to enhancing presumed schwannoma. No significant contribution to spinal canal stenosis from degenerative changes. No neural foraminal narrowing. IMPRESSION: Two enhancing extradural mass consistent with schwannomas given the provided history of schwannomatosis. Larger of the two masses at the C7-T1 level produces moderate spinal canal stenosis. Stable degenerative changes as detailed above. Dictated by: Abdifatah Alvarado M.D. on 06/07/2022 at 8:29 Approved by: Abdifatah Alvarado M.D. on 06/07/2022 at 8:38
--- NOTE | 2022-06-04 | DI.MRI.S_ITS ---
PROCEDURE: MR THORACIC SPINE WO/W CON INDICATIONS: Schwannomatosis TECHNIQUE: Noncontrast sagittal T1 spin echo and T2 fast spin echo, sagittal STIR, axial T1 and T2 fast spin echo through the thoracic spine. After the administration of contrast, axial and sagittal T1 spin echo with fat saturation through the thoracic spine. COMPARISON: [facility], , MR THORACIC SPINE WO/W CON, 06/24/2020, 16:59. FINDINGS: Normal thoracic vertebral body height and alignment. No suspicious focal marrow signal abnormality or bone marrow edema. Normal morphology and signal intensity of the thoracic cord. There is no syrinx. There are a few enhancing T2 hyperintense masses within the spinal canal which appear to be extradural, consistent with schwannomas. Approximately 6 mm in the left posterior spinal canal at the C7-T1 level produces moderate spinal canal stenosis (series 14, image 5). Tiny 3 mm lesion in the right posterolateral spinal canal at the T7-T8 level produces no mass effect upon the cord (series 13, image 7 and series 14 image 30). Approximately 9 mm mass in the right posterolateral spinal canal at the T10-T11 level produces moderate spinal canal stenosis. Numerous paraspinous nodules are also redemonstrated which have not significantly changed when compared with 06/24/2020 exam. The largest of these, predominantly cystic with peripheral enhancement in the right posterior pararenal and paraspinous space measures up to 9 cm maximum axial dimension. Immediately superior to this there is a heterogeneously enhancing mass with stippled T2 signal intensity which measures approximately 6 by 4 cm maximum axial dimension, compared with 5.6 x 4.0 cm previously, not significantly changed. A predominantly cystic mass with peripheral enhancement measuring 6.2 x 4.9 cm in the left paraspinous soft tissues at the T2 level is slightly increased from 5.5 x 4.4 cm previously. In the right paratracheal neck base on series 14, image 10 there is an unchanged approximately 2.3 cm enhancing mass. IMPRESSION: Multiple enhancing masses consistent with schwannomas. Masses in the spinal canal have mildly increased in size from comparison study, two of which now produce moderate spinal canal stenosis (at the C7-T1 and T10-T11 levels). No significant change in size of multiple paraspinous masses. Dictated by: Abdifatah Alvarado M.D. on 06/07/2022 at 8:38 Approved by: Abdifatah Alvarado M.D. on 06/07/2022 at 8:48
--- NOTE | 2022-06-04 12:36 | DI.CT.S_ITS ---
PROCEDURE: CT LUMBAR SPINE WO CON INDICATIONS: Schwannomatosis TECHNIQUE: Noncontrast 3 mm thick sections acquired from the T12 level to the sacrum. Sagittal and coronal reformats were constructed. For radiation dose reduction, the following was used: automated exposure control. COMPARISON: [facility], MR, MR LUMBAR SPINE WO/W CON, 03/19/2022, 11:04. FINDINGS: Image quality: Excellent. Bones: Mild dextroconvex scoliotic curvature is seen. No focal AP alignment abnormality is seen. Portions of the posterior elements have been removed at the T11-T12 level. There is a cystic, expansile lesion seen involving the right lumbosacral plexus, as on series 3, image 87 measuring 2.7 x 2.7 cm in greatest axial dimension. There is expansion of the right neural foramen at S2. Multiple levels of underlying degenerative change are seen, which are better demonstrated by CT. Soft tissues: Within the right retroperitoneum, there is again seen a low-density mass that measures 15 Hounsfield units and measures 10.1 x 8.2 cm in greatest axial dimension. Mass effect is seen upon the right kidney, which is displaced anteriorly. There is a similar appearing cystic mass seen along the superior aspect of the larger mass along the right posterior pleura that measures 5.7 x 3.8 cm in greatest axial dimension, with an internal density of 32 Hounsfield units. Additional smaller mass can be seen inferiorly along the right lateral aspect of the pelvis posteriorly measuring 3.9 x 3 cm in greatest axial dimension, as on series 3, image 63. Numerous postoperative clips are partially seen within the pelvis. IMPRESSION: Numerous soft tissue masses are seen, which are consistent with the known history of multiple schwannomas. There is an expansile lesion seen involving the right neural foramen at S2. Prior postoperative change, with removal of portions of the posterior elements at T11-T12. Dictated by: Matthew Kumari M.D. on 06/04/2022 at 15:10 Approved by: Bruce Marquez M.D. on 06/04/2022 at 14:28
== END ==
PROVIDERS: PCP Registered Nurse Diabetes Educator; Referring Provider Neurological Surgery; Visit Provider Neurological Surgery
DX: Q85.03 Schwannomatosis (principal); G54.1 Lumbosacral plexus disorders
CPT/HCPCS: 72131; 72156; 72157; A9579

== ENCOUNTER → 2022-06-11 09:20 | Outpatient (CLI) | payer OTHER, SELFPAY ==
--- NOTE | 2022-06-11 | DI.MRI.S_ITS ---
PROCEDURE: MR PELIS WO/W CON INDICATIONS: Schwannomatosis TECHNIQUE: Noncontrast coronal T1 spin echo and STIR, sagittal T1 spin echo with fat saturation and STIR, axial T1 spin echo and T2 fast spin echo with fat saturation. After the administration of contrast, axial/sagittal/coronal T1 spin echo with fat saturation through the pelvis. COMPARISON: None. FINDINGS: Image quality: Excellent. Bones: Diffusely heterogeneous marrow signal throughout bony pelvis, lower lumbar spine and bilateral hip is seen. There is no marrow edema. No fracture or dislocation. No area of abnormal intraosseous enhancement. No suspicious intraosseous lesion. No evidence of avascular necrosis of femoral head. Soft tissues: 3 x 3.8 x 3.9 cm heterogeneously T2 hyperintense and T1 hypointense structure in right retroperitoneal space lateral to right psoas muscle at L4 and L5 level series 8, image 5, series 5, image 18. 2.8 x 2.7 x 3.6 cm heterogeneously T2 hyperintense and T1 hypointense lesion in presacral soft tissue anterior to right S2 level is seen series 8 image 17 and series 5 image 9. 1.7 x 2.2 x 2.1 cm T2 hyperintense and T1 hypointense structure posterior to the left acetabulum series 8, image 27 and series 5, image 12. 1.9 x 2.6 x 1.9 cm T2 hyperintense and T1 hypointense lesion in left retroperitoneal space medial to the left obturator internus muscle with mass effect on left posterior wall of urinary bladder series 8, image 28 and series 5, image 15. After IV contrast infusion, heterogeneous contrast enhancement in the above-mentioned lesions are seen. No other soft tissue mass or fluid collection is seen. Urinary bladder wall thickness is normal. Uterus and bilateral adnexa show no gross abnormality. No gross muscle signal abnormality. No abnormal intramuscular enhancement. Fecal stasis in the colon is seen, no abnormal bowel wall thickening. No peritoneal free fluid. IMPRESSION: 1. 4 heterogeneously enhancing T2 hyperintense and T1 hypointense lesions scattered in pelvic soft tissue as described above most consistent with schwannoma related to patient's clinical history of schwannomatosis. 2. Heterogeneous marrow signal abnormality. No suspicious intraosseous lesion or abnormal intraosseous enhancement. Dictated by: Matthew Kumari M.D. on 06/13/2022 at 22:09 Approved by: Matthew Kumari M.D. on 06/13/2022 at 22:30
--- NOTE | 2022-06-11 | DI.MRI.S_ITS ---
PROCEDURE: MR HEAD/BRAIN WO/W CON INDICATIONS: Schwannomatosis TECHNIQUE: Noncontrast axial T1 spin echo, axial T2 fast spin echo, sagittal and axial FLAIR, coronal T2 fast spin echo, axial gradient echo, axial diffusion and ADC through the brain. After the administration of contrast, axial and coronal and sagittal T1 spin echo with fat saturation through the brain. COMPARISON: None. FINDINGS: Image quality: Excellent. CSF spaces: Basal cisterns are patent. No extra-axial fluid collections. Ventricles are normal in size and shape. Within the right posterior aspect of the lateral ventricular body, there is an asymmetric heterogeneously enhancing focus measuring roughly 23 mm, which demonstrates low T2 signal and low gradient echo signal, and causes minimal leftward indentation of the cavum septum pellucidum. Brain: No midline shift. No intracranial bleeds or masses. No abnormal intracranial enhancement. There is cerebral volume loss for age. There is periventricular white matter chronic small vessel ischemic change. The brainstem appears normal. Diffusion-weighted images demonstrate no acute ischemic insults. No chronic ischemic insults. Normal intravascular flow voids are present. Skull and face: Calvarial marrow is normal in signal. Orbits appear normal. Sinuses: Sinuses and mastoids appear clear. IMPRESSION: 1. Right lateral ventricular lesion as described above, possibly indicating a focus of remote hemorrhage, calcification, or low-grade neoplasm. Follow-up brain MRI with and without intravenous contrast in 3 months is recommended to evaluate for stability and exclude less likely, more aggressive etiologies. 2. No acute process. No recent infarct. 3. Mild volume loss. Minimal small vessel ischemic disease. Dictated by: Kimmie Perdomo M.D. on 06/13/2022 at 8:18 Approved by: Kimmie Perdomo M.D. on 06/13/2022 at 8:23
== END ==
PROVIDERS: PCP Registered Nurse Diabetes Educator; Referring Provider Neurological Surgery; Visit Provider Neurological Surgery
DX: Q85.03 Schwannomatosis (principal)
CPT/HCPCS: 70553; 72197; A9579

== ENCOUNTER → 2022-06-18 13:41 | Outpatient (CLI) | payer OTHER, SELFPAY ==
--- NOTE | 2022-06-18 13:47 | DI.RAD.S_ITS ---
PROCEDURE: XR LUMBAR SPINE MIN 4V INDICATIONS: Known lumbar schwannomas STANDING LUMBAR FLEX/EX TECHNIQUE: 5 views of the lumbar spine acquired, including flexion and extension views. COMPARISON: [facility], MR, MR LUMBAR SPINE WO/W CON, 03/19/2022, 11:04. [facility], CT, CT LUMBAR SPINE WO CON, 06/04/2022, 14:28. FINDINGS: Bones: 5 nonrib-bearing vertebrae are present. No vertebral body compression fractures. No suspicious bony lesions. Mild dextroconvex scoliotic curvature is seen. The disc heights are relatively well preserved. Mild endplate irregularity and sclerosis are seen. Soft tissues: Overlying bowel gas pattern is normal. No suspicious soft tissue calcifications. Postoperative changes can be seen, with bilateral pelvic clips. Flexion/extension: There is limited range of motion, with preserved normal alignment. IMPRESSION: Limited range of motion, without abnormal subluxation. Mild dextroconvex scoliotic curvature is seen. Additional findings: Bilateral pelvic clips. Dictated by: Bruce Marquez M.D. on 06/18/2022 at 14:50 Approved by: Bruce Marquez M.D. on 06/18/2022 at 14:52
== END ==
PROVIDERS: PCP Registered Nurse Diabetes Educator; Referring Provider Neurological Surgery; Visit Provider Neurological Surgery
DX: Q85.03 Schwannomatosis (principal); M41.9 Scoliosis, unspecified
CPT/HCPCS: 72110

== ENCOUNTER → 2022-07-08 07:28 | Outpatient (CLI) | payer OTHER, SELFPAY ==
[2022-07-08 08:41] LABS: Add Manual Diff / Slide Review NO; Basophils Absolute Auto 100 /uL (0-100); Basophils Percent Auto 0.9 % (0-2); Eosinophils Absolute Auto 200 /uL (0-450); Eosinophils Percent Auto 4.2 % (2-4); Hematocrit 39.1 % (36-46); Hemoglobin 13.4 g/dL (12.0-16.0); Lymphocytes Absolute Auto 2100 /uL (1100-4500); Mean Corpuscular HGB Conc 34.3 % (30-36); Mean Corpuscular Hemoglobin 30.3 PG (26-34); Mean Corpuscular Volume 88.2 fL (80-100); Monocytes Absolute Auto 500 /uL (0-900); Monocytes Percent Auto 8.3 % (3-14); Neutrophils Absolute Auto 2800 /uL (1500-7000); Neutrophils Percent Auto 49.6 % (50-75); Platelet Count 246 X10^3/uL (150-400); Red Blood Cell Count 4.44 X10^6/uL (4.0-5.2); Red Cell Distribution Width 12.9 % (11.6-14.8); White Blood Cell Count 5.6 X10^3/uL (4.5-11.0)
[2022-07-08 08:50] LABS: Alanine Aminotransferase 29 IU/L (<35); Albumin 4.1 g/dL (3.5-5.0); Albumin Globulin Ratio 1.3 (1.0-2.8); Alkaline Phosphatase 94 U/L (38-126); Aspartate Aminotransferase 33 IU/L (14-36); BUN Creatinine Ratio 24.1 (6-22); Bilirubin Total 0.4 mg/dL (0.2-1.3); Blood Urea Nitrogen 13 mg/dL (7-17); Calcium 9.1 mg/dL (8.4-10.2); Carbon Dioxide 25 mmol/L (22-32); Chloride 107 mmol/L (98-107); Estimated Glomerular Filt Rate > 60 mL/min (>60); Globulin 3.2 g/dL (1.7-4.1); Glucose 94 mg/dL (80-110); HEMOLYSIS < 15 (0-50); Potassium 3.9 mmol/L (3.4-5.1); Sodium 141 mmol/L (137-145); Total Protein 7.3 g/dL (6.3-8.2)
[2022-07-08 09:14] LABS: Free T3, Triiodothyronine Free 3.69 pg/mL (2.77-5.27); Free T4, Direct Thyroxine 1.14 ng/dL (0.78-2.19)
[2022-07-08 09:27] LABS: Thyroid Stimulating Hormone 2.91 uIU/mL (0.47-4.68)
[2022-07-09 09:56] LABS: Triiodothyronine T3 Total 102 ng/dL (71-180)
[2022-07-11 11:09] LABS: Thyrotropin Receptor AB <1.10 IU/L (0.00-1.75)
[2022-07-11 16:44] LABS: Thyroid Stimulating Immunoglob 0.77 IU/L (0.00-0.55)
== END ==
PROVIDERS: PCP Registered Nurse Diabetes Educator; Referring Provider Internal Medicine Endocrinology, Diabetes & Metabolism; Visit Provider Internal Medicine Endocrinology, Diabetes & Metabolism
DX: E05.00 Thyrotoxicosis with diffuse goiter without thyrotoxic crisis or storm (principal)
CPT/HCPCS: 36415; 80053; 83520; 84439; 84443; 84445; 84480; 84481; 85025

== ENCOUNTER 2022-09-18 14:35 | Emergency (ER) | payer OTHER, MEDICARE, SELFPAY ==
[2022-09-18 14:42] VITALS: BP 142/81; PULSE 87; RESP 16; TEMP 36.4; O2SAT 97; BMI 25.7
--- NOTE | 2022-09-18 15:19 | DI.RAD.S_ITS ---
PROCEDURE: XR ABDOMEN MIN 2V INDICATIONS: Prior recent back surgery, constipation. TECHNIQUE: 2 views of the abdomen were acquired. COMPARISON: [facility], CR, XR LUMBAR SPINE MIN 4V, 06/18/2022, 14:02. FINDINGS: Surgical changes and devices: Soft tissue postoperative clips are seen posteriorly. Lumbar spine postoperative change can be seen. Numerous soft tissue postoperative clips are seen, left more numerous than right. Bowel: No pneumoperitoneum. The bowel gas pattern is normal. There is a moderate amount of stool seen within the colon. Soft tissues: No masses; visualized solid organ contours appear normal in size. No suspicious abdominal calcifications. Bones: No suspicious bony abnormalities. Age-appropriate bony degenerative changes are seen. Mild dextroconvex scoliotic curvature is seen. IMPRESSION: There is a moderate amount of stool seen within the colon. Please correlate with an underlying history of constipation. Lumbar spine surgery and soft tissue postoperative clips can be seen. Dictated by: Bruce Marquez M.D. on 09/18/2022 at 16:04 Approved by: Bruce Marquez M.D. on 09/18/2022 at 16:06
[2022-09-18 16:02] VITALS: BP 142/81
--- NOTE | 2022-09-18 16:25 | ED.ABDPAIN ---
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 Rose from [facility]. She presents today with worsening constipation, over the last 3 days but has been ongoing since her surgery 13 days ago. She states that she was having good bowel movements with her senna and MiraLax over the first 5 days but then states that her stool became harder to pass and she has not been able to bear down due to the precautions for her surgery. She states that she now feels distended and bloated, denies history of abdominal surger,y and still has all of her reproductive organs. Denies urinary frequency or urgency but endorses suprapubic fullness and bloating of her abdomen. Denies flank pain, denies fever chills, states that she has not had any focal weakness, has not had any loss of rectal tone or any urinary changes. She denies any numbness or tingling or groin numbness. Related Data Home Medications Medication Instructions Recorded Confirmed methimazole 10 mg tablet 5 mg PO DAILY 07/19/22 07/19/22 Previous Rx's Medication Instructions Recorded famotidine 20 mg tablet 20 mg PO BID #180 tabs 07/19/22 pneumoc 20-evelyn conj-dip cr(PF) 0.5 0.5 ml IM ONCE #0.5 mL 07/19/22 mL IM syringe (Prevnar 20 (PF)) varicella-zoster glycoE [id number] 0.5 ml IM ONCE #1 ea 07/19/22 adj(PF) 50 mcg/0.5 mL IM susp, kit (Shingrix (PF)) bisacodyl 10 mg rectal suppository 10 mg RI DAILY PRN constipation 09/18/22 #12 ea naproxen 375 mg tablet 375 mg PO BID PRN pain #20 tabs 09/18/22 polyethylene glycol 3350 17 17 g PO BID for soft stool #510 09/18/22 gram/dose oral powder (Miralax) grams prednisone 20 mg tablet 20 mg PO DAILY #4 tabs 09/18/22 Allergies Allergy/AdvReac Type Severity Reaction Status Date / Time prochlorperazine Allergy Unknown MAKES ME Verified 09/18/22 16:30 [From COMPAZINE] CRAZY Morpholine Analogues AdvReac Verified 09/18/22 16:30 Review of Systems <MATHIEU Chaidez - Last Filed: 09/18/22 19:20> Review of Systems ROS Unobtainable: All systems reviewed & are unremarkable except as noted in HPI and below Patient History <MATHIEU Chaidez - Last Filed: 09/18/22 19:20> Medical History Chicken pox Double vision Fracture (~2020) GERD (gastroesophageal reflux disease) (~2019) Graves disease (~2018) Hearing decreased Hypertension (~2021) Neurofibromatosis (~1991) Osteopenia Thyroid eye disease (~2020) Surgical History Anesthesia Brachial plexus mass (~2018) History of laminectomy (~1994) History of lumbosacral spine surgery (~2015) History of surgery on lower extremity (~2021) Family History Father History of heart disease Hypertension Mental health problem Mother Cancer COPD (chronic obstructive pulmonary disease) Sister Breast cancer Grandfather Stroke Grandmother Breast cancer Social History Smoking Status: Never smoker Smoking Status: Never smoker Substance Use Type: does not use Exam <MATHIEU Chaidez - Last Filed: 09/18/22 19:20> Narrative Exam Narrative: Reviewed vitals signs and nursing notes. General: Pleasant, sitting upright, in no acute distress, well groomed, afebrile HEENT: symmetrical facial expressions, moist mucous membranes, neck is supple CV: regular rate and rhythm, warm extremities Respiratory: normal work of breathing, without tachypnea or hypoxia. GI: abdomen soft, nondistended, without CVA tenderness bilaterally. MSK: moves all extremities, no weakness, normal tone, ambulatory without deficit Skin: brisk capillary refill, without rash or wound Neuro: clear speech and normal cognition, A&O x3, GCS 15, no focal motor or sensation deficits Initial Vital Signs Initial Vital Signs: Vital Signs Temperature 97.5 F L 09/18/22 14:42 Pulse Rate 87 09/18/22 14:42 Respiratory Rate 16 09/18/22 14:42 Blood Pressure 142/81 H 09/18/22 14:42 Pulse Oximetry 97 09/18/22 14:42 Oxygen Delivery Method Room Air 09/18/22 14:42 <Mihai Ferrari DO - Last Filed: 09/18/22 17:11> Initial Vital Signs Initial Vital Signs: Vital Signs Temperature 97.5 F L 09/18/22 14:42 Pulse Rate 87 09/18/22 14:42 Respiratory Rate 16 09/18/22 14:42 Blood Pressure 142/81 H 09/18/22 14:42 Pulse Oximetry 97 09/18/22 14:42 Oxygen Delivery Method Room Air 09/18/22 14:42 Course <MATHIEU Chaidez - Last Filed: 09/18/22 19:20> Orders Ordered: ED Orders 09/18/22 15:19 XR abdomen min 2V Stat 09/18/22 17:00 Urine Microscopic Stat 09/18/22 17:08 MR lumbar spine wo con Stat 09/18/22 17:32 Wet Prep Tric BV Cherise Stat Discontinued Medications Bisacodyl (Bisacodyl 10 Mg Supp) 10 mg RI NOW ONE Stop: 09/18/22 15:20 Last Admin: 09/18/22 16:31 Dose: 10 mg Documented By: RB Ketorolac Tromethamine (Ketorolac 10 Mg Tablet) 10 mg PO NOW ONE Stop: 09/18/22 16:28 Last Admin: 09/18/22 16:38 Dose: 10 mg Documented By: RB Lactulose (Lactulose 20 Gm/30 Ml Solution) 20 gm PO NOW ONE Stop: 09/18/22 19:14 Metoclopramide HCl (Metoclopramide Hcl 5 Mg Tablet) 10 mg PO NOW ONE Stop: 09/18/22 17:27 Last Admin: 09/18/22 18:47 Dose: 10 mg Oxycodone/Acetaminophen (Oxycodone/Acetaminophen 5/325 Tablet) 1 tab PO NOW ONE Stop: 09/18/22 19:14 Polyethylene Glycol (Polyethylene Glycol 3350 17 Gm Powd.Pack) 17 gm PO NOW ONE Stop: 09/18/22 15:20 Last Admin: 09/18/22 16:39 Dose: 17 gm Documented By: CARLOS Prednisone (Prednisone 20 Mg Tablet) 20 mg PO NOW ONE Stop: 09/18/22 19:09 Vital Signs Vital signs: Vital Signs - 8 hr 09/18/22 14:42 09/18/22 16:02 09/18/22 16:32 Temperature 97.5 F L Pulse Rate 87 Respiratory Rate 16 Blood Pressure 142/81 H 142/81 H 118/76 Pulse Oximetry 97 Oxygen Delivery Method Room Air <Mihai Ferrari DO - Last Filed: 09/18/22 17:11> Orders Ordered: ED Orders 09/18/22 15:19 XR abdomen min 2V Stat 09/18/22 17:00 Urine Microscopic Stat 09/18/22 17:08 MR lumbar spine wo con Stat 09/18/22 17:32 Wet Prep Tric BV Cherise Stat Discontinued Medications Bisacodyl (Bisacodyl 10 Mg Supp) 10 mg RI NOW ONE Stop: 09/18/22 15:20 Last Admin: 09/18/22 16:31 Dose: 10 mg Documented By: CARLOS Ketorolac Tromethamine (Ketorolac 10 Mg Tablet) 10 mg PO NOW ONE Stop: 09/18/22 16:28 Last Admin: 09/18/22 16:38 Dose: 10 mg Documented By: CARLOS Lactulose (Lactulose 20 Gm/30 Ml Solution) 20 gm PO NOW ONE Stop: 09/18/22 19:14 Metoclopramide HCl (Metoclopramide Hcl 5 Mg Tablet) 10 mg PO NOW ONE Stop: 09/18/22 17:27 Last Admin: 09/18/22 18:47 Dose: 10 mg Oxycodone/Acetaminophen (Oxycodone/Acetaminophen 5/325 Tablet) 1 tab PO NOW ONE Stop: 09/18/22 19:14 Polyethylene Glycol (Polyethylene Glycol 3350 17 Gm Powd.Pack) 17 gm PO NOW ONE Stop: 09/18/22 15:20 Last Admin: 09/18/22 16:39 Dose: 17 gm Documented By: RB Prednisone (Prednisone 20 Mg Tablet) 20 mg PO NOW ONE Stop: 09/18/22 19:09 Vital Signs Vital signs: Vital Signs - 8 hr 09/18/22 14:42 09/18/22 16:02 09/18/22 16:32 Temperature 97.5 F L Pulse Rate 87 Respiratory Rate 16 Blood Pressure 142/81 H 142/81 H 118/76 Pulse Oximetry 97 Oxygen Delivery Method Room Air MDM - Abdominal Pain <MATHIEU Chaidez - Last Filed: 09/18/22 19:20> Lab Data Labs: Lab Results 09/18/22 Range/Units 17:00 Urine RBC 0-1/hpf (0-5/HPF) Urine WBC 0-1/hpf (0-5/HPF) Urine Bacteria None seen (None) Ur Culture Indicated? Cult not indicated Imaging Data Abdominal x-ray: Radiologist's Impression: PROCEDURE:? XR ABDOMEN MIN 2V ? INDICATIONS:? Prior recent back surgery, constipation. ? TECHNIQUE:? 2 views of the abdomen were acquired.? ? COMPARISON:? [facility], CR, XR LUMBAR SPINE MIN 4V, 06/18/2022, 14:02. ? FINDINGS:? Surgical changes and devices:? Soft tissue postoperative clips are seen posteriorly.? Lumbar spine postoperative change can be seen. ? Numerous soft tissue postoperative clips are seen, left more numerous than right. ? Bowel:? No pneumoperitoneum.? The bowel gas pattern is normal.? There is a moderate amount of stool seen within the colon. ? Soft tissues:? No masses; visualized solid organ contours appear normal in size.? No suspicious abdominal calcifications.? ? Bones:? No suspicious bony abnormalities.? Age-appropriate bony degenerative changes are seen.? Mild dextroconvex scoliotic curvature is seen. ? ? ? IMPRESSION:? There is a moderate amount of stool seen within the colon. Please correlate with an underlying history of constipation.? ? Lumbar spine surgery and soft tissue postoperative clips can be seen. ? ? Dictated by: Bruce Marquez M.D. on 09/18/2022 at 16:04 ? ? Approved by: Bruce Marquez M.D. on 09/18/2022 at 16:06 ? MDM Narrative Medical decision making narrative: Chief Complaint: Constipation, abdominal fullness Independent historian: Patient and her Multiple etiologies for patient's symptoms considered including, but not limited to: Constipation/obstipation, fecal impaction, hemorrhoids, cauda equina, pelvic floor dysfunction, bowel obstruction,Nerve root compression, perforated viscus I have independently reviewed the patient's vital signs and nursing notes as well as prior records if available. My interpretation of lab studies: urine dip is negative for blood, WBCs are leukocytes Prior urine culture from 11/10 shows group B strep urinary infection My interpretation of imaging: Abdomen x-ray shows a distended bladder, impacted stool, does not show bowel perforation or obstruction Course of care: Patient had MiraLax and prune juice, tolerated this without vomiting, was ambulatory to provide a urine sample without any weakness. Digital Rectal exam patient has rectal tone and full sensation of her pelvic area, she was unable to void and her bladder was notably distended on her abdominal x-ray, straight cath completed by myself, sterile technique was used patient had proximally 600 mL of clear, dark yellow colored urine was drained via straight cath into a urinal. Bisacodyl suppository was placed in her rectum, the firm stool in her rectal vault was manually broken up with disimpaction. Suppository remains in place, patient will attempt bowel movement in 15 minutes. Urine dip is negative for WBCs, nitrites, leukocytes and blood. Specific gravity is 1.01 urine microscopy is pending On Monday 17:00, MRI was ordered they did not answer radiology desk, concerned that there may not be MRI today, attempting to schedule the MRI. No MRI available after 2 attempts. Patient does have rectal tone, her bladder was drained with a straight catheter, will attempt to void and have a bowel movement prior to discharge 1900, patient received her Reglan, she is up to the commode currently to attempt a bowel movement, Patient had a small bowel movement, was disimpacted by myself, received lactulose prior to discharge since she did not have a larger bowel movement, and a pain pill since she has been here for few hours. She understands return to the emergency department if she has any weakness, urinary retention, if she is unable to have a bowel movement, or if she has any worsening pain. MRI was canceled this there is no MR today. She does have rectal tone, without any focal weakness and no groin paresthesia. She was treated with prednisone 20 mg daily for 5 days, Toradol x1 and naproxen as an outpatient, and her urine is aseptic. Social considerations that may affect disposition: none Questions are addressed and there is agreement with the plan and for follow-up. I consulted with the ED attending physician Dr. Ferrari as needed for higher level of care considerations and they were available for discussion and recommendations regarding plan of care and diagnostic testing. Patient is appropriate for outpatient management. <Mihai Ferrari, DO - Last Filed: 09/18/22 17:11> Lab Data Labs: Lab Results 09/18/22 Range/Units 17:00 Urine RBC 0-1/hpf (0-5/HPF) Urine WBC 0-1/hpf (0-5/HPF) Urine Bacteria None seen (None) Ur Culture Indicated? Cult not indicated Discharge Plan Departure Patient Disposition: Home Clinical Impression: Neurofibromatosis Constipated Qualifiers: Constipation type: drug induced constipation Qualified Code(s): K59.03 - Drug induced constipation Instructions: DI for Constipation Activity Restrictions/Additional Instructions: *You have been diagnosed with constipation without a bowel obstruction. Your bladder was very full, when we drained this, this could have been what was holding up your stool. Please use MiraLax morning and night until you have regular soft stools, please use a bisacodyl suppository tomorrow morning to help you have another bowel movement. Please take the steroid once daily for the next 4 days, you received 1 dose here in the emergency department. Please take naproxen morning and night to help with with inflammation which could be affecting the nerve root. If you are unable to void or have a bowel movement tomorrow, please come back to the emergency department for evaluation. If you have any weakness, numbness, tingling, or are unable to walk, please come back to the emergency department by ambulance. *What to do: *Please continue to take your regular medications as directed. [x ] New medication prescriptions sent to your pharmacy: [[facility] ] [ ] New medication written as a paper prescription [ ] No new medications given *Please call and schedule follow up with your primary care provider in 2-3 days, at least for an update. Let them know you were seen in the Emergency Department for the above problem. We will electronically transmit a record of today's note if your PCP or specialist is in our system. *If you do not have a primary care provider please contact [phone] to establish care with one of the [facility] primary care providers. *Return to the Emergency Department for worsening symptoms, inability to keep liquids down, fever greater than 101F, chills, or other concerning symptom. Prescriptions: New bisacodyl 10 mg suppository 10 mg RI DAILY PRN (Reason: constipation) Qty: 12 0RF prednisone 20 mg tablet 20 mg PO DAILY Qty: 4 0RF polyethylene glycol 3350 [Miralax] 17 gram/dose powder 17 g PO BID Qty: 510 0RF naproxen 375 mg tablet 375 mg PO BID PRN (Reason: pain) Qty: 20 0RF Rx Instructions: Take with food and water No Action methimazole 10 mg tablet 5 mg PO DAILY Shingrix (PF) 50 mcg/0.5 mL suspension for reconstitution 0.5 ml IM ONCE Qty: 1 1RF Rx Instructions: 0.5 mL administered as a 2-dose series at 0 and 2 to 6 months Prevnar 20 (PF) 0.5 mL syringe 0.5 ml IM ONCE Qty: 0.5 0RF Rx Instructions: as a single dose famotidine 20 mg tablet 20 mg PO BID Qty: 180 3RF Referrals: Ermias Alvarado ARNP [Primary Care Provider] - Jeff Rose MD [Non-Staff] - Stand Alone Forms: Patient Portal/API <Mihai Ferrari DO - Last Filed: 09/18/22 17:11> [facility]: Dr Ferrari Co-Sign Statement: I was available for consultation during this patient's emergency department visit. This chart is signed by myself for administrative purposes only. I did not have direct contact with this patient during this visit. They were seen independently by the [facility].
[2022-09-18] MEDS: BISACODYL 10 MG SUPP PR (16:31)
[2022-09-18 16:32] VITALS: BP 118/76
[2022-09-18] MEDS: KETOROLAC 10 MG TABLET PO (16:38)
[2022-09-18] MEDS: polyethylene glycoL 3350 17 GM POWD.PACK PO (16:39)
[2022-09-18 18:08] LABS: Bacteria Urine None Seen; Culture Indicated Urine Cult Not Indicated; RBC Urine 0-1/HPF (0-5/HPF); WBC Urine 0-1/HPF (0-5/HPF)
[2022-09-18] MEDS: METOCLOPRAMIDE HCL 5 MG TABLET 10 MG PO (18:47)
[2022-09-18] MEDS: OXYCODONE/ACETAMINOPHEN 5/325 TABLET 1 TAB PO (19:18)
[2022-09-18] MEDS: LACTULOSE 20 GM/30 ML SOLUTION PO (19:19)
[2022-09-18] MEDS: predniSONE 20 MG TABLET PO (19:23)
== END 2022-09-18 19:40 | disposition home or self-care (01) ==
PROVIDERS: Emergency Provider Nurse Practitioner Critical Care Medicine; PCP Registered Nurse Diabetes Educator
DX: K59.03 Drug induced constipation (principal)
CPT/HCPCS: 74019; 81015; 87210; 99283; 99284

== ENCOUNTER → 2022-10-07 11:42 | Outpatient (CLI) | payer OTHER, SELFPAY ==
[2022-10-07 13:17] LABS: Free T4, Direct Thyroxine 1.14 ng/dL (0.78-2.19)
[2022-10-07 13:31] LABS: Thyroid Stimulating Hormone 1.79 uIU/mL (0.47-4.68)
[2022-10-08 07:13] LABS: Triiodothyronine T3 Total 102 ng/dL (71-180)
== END ==
PROVIDERS: PCP Registered Nurse Diabetes Educator; Referring Provider Internal Medicine Endocrinology, Diabetes & Metabolism; Visit Provider Internal Medicine Endocrinology, Diabetes & Metabolism
DX: E05.00 Thyrotoxicosis with diffuse goiter without thyrotoxic crisis or storm (principal)
CPT/HCPCS: 36415; 84439; 84443; 84480

== ENCOUNTER → 2022-11-01 10:26 | Outpatient (CLI) | payer OTHER, SELFPAY ==
--- NOTE | 2022-11-01 | DI.RAD.S_ITS ---
PROCEDURE: XR LUMBAR SPINE MIN 4V INDICATIONS: Other specified postprocedural states TECHNIQUE: 5 views of the lumbar spine were acquired, including bilateral oblique views. COMPARISON: [facility], , XR LUMBAR SPINE MIN 4V, 06/18/2022, 14:02. FINDINGS: Bones: 5 nonrib-bearing vertebrae are present. There is mild rightward curvature of the upper lumbar spine. Posterior hardware at L3-L5 is present. Multilevel disc space narrowing and endplate osteophyte formation. No vertebral body compression fractures. No suspicious bony lesions. Soft tissues: Overlying bowel gas pattern is normal. No suspicious soft tissue calcifications. IMPRESSION: 1. Postsurgical sequelae. 2. Multilevel degenerative disc disease. 3. No acute fracture. No osseous lesion. If symptoms and/or clinical suspicion for pathology persist, further assessment with repeat, or advanced imaging (e.g., CT, MRI, or bone scan) may be helpful for further assessment. Dictated by: Kimmie Perdomo M.D. on 11/01/2022 at 11:49 Transcribed by: TORI on 11/01/2022 at 11:50 Approved by: Kimmie Perdomo M.D. on 11/01/2022 at 16:47
== END ==
PROVIDERS: PCP Registered Nurse Diabetes Educator; Referring Provider Neurological Surgery; Visit Provider Neurological Surgery
DX: D36.10 Benign neoplasm of peripheral nerves and autonomic nervous system, unspecified (principal); M51.36 Other intervertebral disc degeneration, lumbar region; Z98.890 Other specified postprocedural states
CPT/HCPCS: 72110

== ENCOUNTER → 2022-11-16 16:37 | Outpatient (CLI) | payer OTHER, SELFPAY ==
[2022-11-16 16:58] LABS: Appearance Urine UA CLEAR; Bilirubin Urine UA NEGATIVE (NEGATIVE); Color Urine UA YELLOW; Glucose Urine UA NEGATIVE (Negative); Ketones Urine UA NEGATIVE (NEGATIVE); Leukocyte Esterase Urine UA 3+ (NEGATIVE); Nitrite Urine UA NEGATIVE (Negative); Occult Blood Urine UA 1+ (Negative); Protein Urine UA 1+ (Negative)
[2022-11-16 17:31] LABS: RBC Urine None Seen (0-5/HPF)
[2022-11-16 17:32] LABS: Bacteria Urine Few (2-10); Culture Indicated Urine Specimen Cultured; Squamous Epithelial Cell Urine 1-5 /HPF (0-5/HPF); WBC Urine >100/HPF (0-5/HPF)
== END ==
PROVIDERS: PCP Registered Nurse Diabetes Educator; Referring Provider Registered Nurse Diabetes Educator; Visit Provider Registered Nurse Diabetes Educator
DX: R30.9 Painful micturition, unspecified (principal); R35.0 Frequency of micturition
CPT/HCPCS: 81001; 87086

== ENCOUNTER → 2022-12-11 13:53 | Outpatient (CLI) | payer OTHER, SELFPAY ==
--- NOTE | 2022-12-11 13:54 | DI.CT.S_ITS ---
PROCEDURE: CT LUMBAR SPINE WO CON INDICATIONS: Post lumbar laminectomy multiple schwannomas. TECHNIQUE: Noncontrast 3 mm thick sections acquired from the T12 level to the sacrum. Sagittal and coronal reformats were constructed. For radiation dose reduction, the following was used: automated exposure control. COMPARISON: [facility], CT, CT LUMBAR SPINE WO CON, 06/04/2022, 14:28. FINDINGS: Image quality: Excellent. Bones: There is normal bony alignment. No acute vertebral body compression fractures. No suspicious lytic or blastic bony lesions. No pars defects. Slight S-shaped curvature of the spine. T12-L1: Moderate disc height loss. L1-L2: Mild disc height loss. L2-L3: Moderate disc height loss. Broad-based disc bulge. Mild facet hypertrophy and ligamentum flavum hypertrophy causing [id number] spinal canal narrowing. Mild bilateral neural foraminal narrowing. L3-L4: Posterior element osteotomy with screw and plate fixation of the remaining components. Mild facet hypertrophy. [place] flavum hypertrophy. Asymmetric posterior disc bulge. Moderate spinal canal narrowing. Mild bilateral neural foraminal narrowing. L4-L5: Posterior element osteotomy with screw plate fixation of the remaining components. Mild ligamentum flavum hypertrophy, right greater than left facet hypertrophy and arthrosis. Broad-based disc bulge. Mild spinal canal narrowing. Disc osteophyte complex. Mild bilateral neural foraminal narrowing. L5-S1: Moderate disc height loss with broad-based disc bulge. Moderate bilateral neural foraminal narrowing. Soft tissues: Retroperitoneal cystic masses are unchanged. Visualized aorta is normal in caliber. IMPRESSION: Interval posterior element osteotomy with screw and plate fixation of the remaining components at L3 and L4. Moderate, multilevel degenerative disc disease and facet arthrosis, not significantly changed from prior. This is most prominent at L3-4 and L4-5, with [id number]-[id number] spinal canal narrowing and mild neural foraminal narrowing. Multiple retroperitoneal lesions most consistent with schwannomas, given history. Dictated by: Rylan Childs M.D. on 12/11/2022 at 14:36 Approved by: Rylan Childs M.D. on 12/11/2022 at 14:42
== END ==
PROVIDERS: PCP Registered Nurse Diabetes Educator; Referring Provider Neurological Surgery; Visit Provider Neurological Surgery
DX: M51.36 Other intervertebral disc degeneration, lumbar region (principal); M47.816 Spondylosis without myelopathy or radiculopathy, lumbar region; M48.061 Spinal stenosis, lumbar region without neurogenic claudication; M51.37 Other intervertebral disc degeneration, lumbosacral region; M48.07 Spinal stenosis, lumbosacral region; K66.9 Disorder of peritoneum, unspecified; Z98.890 Other specified postprocedural states
CPT/HCPCS: 72131

== ENCOUNTER → 2023-02-15 12:21 | Outpatient (CLI) | payer MEDICARE, OTHER, SELFPAY ==
[2023-02-15 14:22] LABS: Add Manual Diff / Slide Review NO; Basophils Absolute Auto 100 /uL (0-100); Basophils Percent Auto 1.1 % (0-2); Eosinophils Absolute Auto 100 /uL (0-450); Eosinophils Percent Auto 2.5 % (2-4); Hematocrit 41.2 % (36-46); Lymphocytes Absolute Auto 1900 /uL (1100-4500); Mean Corpuscular HGB Conc 34.1 % (30-36); Mean Corpuscular Hemoglobin 30.2 PG (26-34); Mean Corpuscular Volume 88.5 fL (80-100); Monocytes Absolute Auto 500 /uL (0-900); Monocytes Percent Auto 8.2 % (3-14); Neutrophils Absolute Auto 3000 /uL (1500-7000); Neutrophils Percent Auto 54.2 % (50-75); Platelet Count 244 X10^3/uL (150-400); Red Blood Cell Count 4.65 X10^6/uL (4.0-5.2); Red Cell Distribution Width 14.1 % (11.6-14.8); White Blood Cell Count 5.5 X10^3/uL (4.5-11.0)
[2023-02-15 14:57] LABS: Alanine Aminotransferase 22 IU/L (<35); Albumin 4.1 g/dL (3.5-5.0); Albumin Globulin Ratio 1.4 (1.0-2.8); Alkaline Phosphatase 86 U/L (38-126); Aspartate Aminotransferase 29 IU/L (14-36); BUN Creatinine Ratio 26.7 (6-22); Bilirubin Total 0.4 mg/dL (0.2-1.3); Blood Urea Nitrogen 16 mg/dL (7-17); Calcium 9.8 mg/dL (8.4-10.2); Carbon Dioxide 27 mmol/L (22-32); Chloride 106 mmol/L (98-107); Estimated Glomerular Filt Rate > 60 mL/min (>60); Glucose 91 mg/dL (80-110); HEMOLYSIS < 15 (0-50); Potassium 4.3 mmol/L (3.4-5.1); Sodium 139 mmol/L (137-145); Total Protein 7.1 g/dL (6.3-8.2)
[2023-02-15 15:13] LABS: Free T3, Triiodothyronine Free 3.77 pg/mL (2.77-5.27); Free T4, Direct Thyroxine 1.19 ng/dL (0.78-2.19)
[2023-02-15 15:27] LABS: Thyroid Stimulating Hormone 1.59 uIU/mL (0.47-4.68)
== END ==
PROVIDERS: PCP Registered Nurse Diabetes Educator; Referring Provider Internal Medicine Endocrinology, Diabetes & Metabolism; Visit Provider Internal Medicine Endocrinology, Diabetes & Metabolism
DX: E05.00 Thyrotoxicosis with diffuse goiter without thyrotoxic crisis or storm (principal)
CPT/HCPCS: 36415; 80053; 84439; 84443; 84481; 85025

== ENCOUNTER → 2023-06-01 16:18 | Outpatient (CLI) | payer MEDICARE, OTHER, SELFPAY ==
--- NOTE | 2023-06-01 16:23 | DI.MRI.S_ITS ---
PROCEDURE: MR THORACIC SPINE WO/W CON INDICATIONS: Schwannomatosis TECHNIQUE: Noncontrast sagittal T1 spin echo and T2 fast spin echo, sagittal STIR, axial T1 and T2 fast spin echo through the thoracic spine. After the administration of contrast, axial and sagittal T1 spin echo with fat saturation through the thoracic spine. COMPARISON: [facility], MR, MR THORACIC SPINE WO/W CON, 06/24/2020, 16:59. [facility], MR, MR THORACIC SPINE WO/W CON, 05/14/2019, 8:16. [facility], MR, MR CERVICAL SPINE WO/W CON, 06/02/2023, 16:59. [facility], MR, MR LUMBAR SPINE WO/W CON, 06/02/2023, 16:59. [facility], MR, MR HEAD/BRAIN WO/W CON, 06/02/2023, 16:59. [facility], MR, MR THORACIC SPINE WO/W CON, 06/04/2022, 13:02. FINDINGS: Image quality: Excellent. Alignment and curvature: There is normal bony alignment. Marrow: Marrow is of normal overall signal. No acute vertebral body compression fractures. Postoperative changes are seen, with removal of portions of the posterior elements involving the lower thoracic spine. This is similar to the prior examination. Spinal cord: A few extra-axial enhancing masses can be seen within the spinal canal, with tiny nodules can be seen at the T4 level and at the T6-T7 level. An additional nodule can be seen at the T10-T11 level posteriorly and on the right, measuring 8 mm craniocaudal, as on series 8, image 8. These are similar to the prior MRI. Visualized spinal cord is of normal signal and size, without abnormal enhancement. Paraspinous soft tissues: Cystic paraspinous masses are seen, including on the left, centered at the T3-T4 level, measuring 5.8 x 4 cm in greatest axial dimension. There is moderate rim enhancement seen. Near the level of the diaphragm on the right, there is an irregularly enhancing mass seen that measures 6.2 x 3.7 cm. Just inferior to this, there is a largely cystic retroperitoneal mass with irregular rim enhancement that is partially visualized and measures at least 9.5 cm. These masses are similar to the prior examination. Miscellaneous: Underlying age-appropriate degenerative changes are seen, with scattered levels of mild neural foraminal narrowing. There is moderate central canal narrowing seen at the T10-T11 level, with mass effect from the enhancing nodule. IMPRESSION: Stable enhancing masses can be seen within the thoracic spinal canal, which are not significantly changed compared to the prior MRI dated 06/04/2022. The paraspinous masses also similar to the prior examination. Dictated by: Bruce Marquez M.D. on 06/02/2023 at 17:53 Approved by: Bruce Marquez M.D. on 06/02/2023 at 18:01
--- NOTE | 2023-06-01 16:23 | DI.MRI.S_ITS ---
PROCEDURE: MR LUMBAR SPINE WO/W CON INDICATIONS: Schwannomatosis TECHNIQUE: Noncontrast sagittal T1 spin echo and T2 fast spin echo, sagittal STIR, axial T1 and T2 fast spin echo through the lumbar spine. In cases with scoliosis, additional coronal T2 fast spin echo may be performed. After the administration of contrast, sagittal and axial T1 spin echo with fat saturation through the lumbar spine. COMPARISON: [facility], CT, CT LUMBAR SPINE WO CON, 12/11/2022, 14:17. [facility], MR, MR LUMBAR SPINE WO/W CON, 03/19/2022, 11:04. [facility], MR, MR HEAD/BRAIN WO/W CON, 06/02/2023, 16:59. [facility], MR, MR THORACIC SPINE WO/W CON, 06/02/2023, 16:59. [facility], MR, MR CERVICAL SPINE WO/W CON, 06/02/2023, 16:59. [facility], MR, MR LUMBAR SPINE WO/W CON, 05/14/2019, 8:16. [facility], MR, MR LUMBAR SPINE WO/W CON, 06/24/2020, 17:30. FINDINGS: Image quality: Excellent. Alignment and curvature: There is minimal retrolisthesis seen at L5-S1. Marrow: Marrow is of normal overall signal. No acute vertebral body compression fractures. No suspicious marrow enhancement. Spinal cord: Conus medullaris terminates at the T12-L1 level. Visualized spinal cord demonstrates normal signal, without suspicious enhancement. Paraspinous soft tissues: There is a large T2 hyperintense a right retroperitoneal mass that measures 9.3 cm AP by approximately 8 cm transversely, with moderate rim enhancement. Enhancing nodular thickening can be seen along the posterior aspect of this lesion superiorly. Just inferior to this mass, there is an additional mass measuring 3.7 x 2.7 cm in greatest axial dimension, with irregular enhancement, which is also similar to the prior examination. Within the spinal canal, numerous extramedullary intensely enhancing masses can be seen. To the prior examination dated 03/19/2022, these nodules are similar. However, a large nodule that was previously seen at the L4 level has been removed. Postoperative changes can be seen of the posterior paraspinous soft tissues, with generalized edema and enhancement. No focal fluid collections can be seen to suggest abscess. There has been removal of portions of the posterior elements. Numerous foci of plate and screw fixation can be seen involving the posterior elements, which are better seen by CT. T12-L1: Moderate loss of disc height is seen. Loss of disc signal is seen. No significant neural foraminal or central canal narrowing can be seen. When comparison is made with the prior images, these findings are similar. L1-L2: Normal appearance. L2-L3: The disc height is well-preserved. Loss of disc signal is seen at this level. Moderate generalized disc bulge is seen. There is a superimposed central disc protrusion. Moderate facet joint hypertrophy is seen. Fluid is seen within the facet joints themselves. There is mild right-sided and moderate left-sided neural foraminal narrowing. Moderate central canal narrowing is seen. When comparison is made with the prior images, these findings are similar. L3-L4: The disc height is well-preserved. Loss of disc signal is seen at this level. Moderate generalized disc bulge is seen. There is at least moderate bilateral facet hypertrophy. There is at least moderate bilateral neural foraminal narrowing seen. Mild to moderate central canal narrowing is seen. The degrees of neural foraminal narrowing have progressed compared to the prior. L4-L5: Moderate loss of disc height is seen. Loss of disc signal is seen. Moderate disc bulge is seen, which is eccentric to the right. There is a superimposed central disc protrusion. At least moderate facet hypertrophy is seen. There is moderate right-sided and no left-sided neural foraminal narrowing. Mild central canal narrowing is seen. The previously seen prominent central canal narrowing at this level has resolved. L5-S1: Moderate loss of disc height is seen. Loss of disc signal is seen. Moderate disc bulge is seen, with a central disc protrusion. Moderate facet joint hypertrophy is seen. Mild to moderate bilateral neural foraminal narrowing can be seen. No central canal narrowing is seen. When comparison is made with the prior images, these findings are similar. IMPRESSION: Multiple foci of enhancing extra-axial masses can be seen. There has been interval resection of a large extra-axial mass at the L4 level, with relief of the previously seen severe central canal narrowing. The remainder of the lesions appear similar. There is a right retroperitoneal masses are again seen, which appears similar. Posterior postoperative changes are seen, which are considered to be within normal limits. The degrees of neural foraminal narrowing appear progressed at L3-L4 compared to the prior MRI. Dictated by: Bruce Marquez M.D. on 06/02/2023 at 17:39 Approved by: Bruce Marquez M.D. on 06/02/2023 at 17:53
== END ==
LOC: MRI 16:19
PROVIDERS: PCP Registered Nurse Diabetes Educator; Referring Provider Neurological Surgery; Visit Provider Neurological Surgery
DX: Q85.03 Schwannomatosis (principal); M48.04 Spinal stenosis, thoracic region; M47.814 Spondylosis without myelopathy or radiculopathy, thoracic region; M48.061 Spinal stenosis, lumbar region without neurogenic claudication
CPT/HCPCS: 72157; 72158; A9579

== ENCOUNTER → 2023-06-02 16:20 | Outpatient (CLI) | payer MEDICARE, OTHER, SELFPAY ==
--- NOTE | 2023-06-02 16:22 | DI.MRI.S_ITS ---
PROCEDURE: MR CERVICAL SPINE WO/W CON INDICATIONS: Schwannomatosis TECHNIQUE: Noncontrast sagittal T1 spin echo and T2 fast spin echo, sagittal STIR, foraminal oblique sagittal T2 fast spin echo, axial gradient echo or T2 fast spin echo through the cervical spine. After the administration of contrast, axial and sagittal T1 spin echo with fat saturation through the cervical spine. COMPARISON: [facility], MR, MR THORACIC SPINE WO/W CON, 06/24/2020, 16:59. [facility], MR, MR CERVICAL SPINE WO/W CON, 06/24/2020, 16:36. [facility], MR, MR LUMBAR SPINE WO/W CON, 06/02/2023, 16:59. [facility], MR, MR THORACIC SPINE WO/W CON, 06/02/2023, 16:59. [facility], MR, MR HEAD/BRAIN WO/W CON, 06/02/2023, 16:59. [facility], MR, MR CERVICAL SPINE WO/W CON, 06/04/2022, 13:02. FINDINGS: Image quality: Excellent. Alignment and curvature: There is overall straightening of the normal cervical lordosis. There is minimal anterolisthesis seen at C3-C4, with mild anterolisthesis at C4-C5. Minimal retrolisthesis is seen at C5-C6. Marrow: Marrow is normal in overall signal, without suspicious enhancement. Spinal cord: There is an extra-axial mass seen adjacent to the spinal cord on the right at the C3 level, as on series 6, image 7 and on series 7 image 13, the measuring 4-5 mm. Posteriorly and on the left, there is an extra-axial mass seen adjacent to the spinal cord, as on series 6, image 9 and on series 7, image 30, measuring 6-7 mm craniocaudal. These are unchanged compared to the prior examination. No new masses are seen Visualized spinal cord has normal size and signal. No cerebellar tonsillar herniation. No abnormal intramedullary enhancement. Paraspinous soft tissues: No paravertebral masses or suspicious enhancement. C2-3: The disc height and disk signal are well-preserved. A mild degree of generalized disc osteophyte complex is seen. Moderate facet joint hypertrophy is seen. No significant neural foraminal or central canal narrowing can be seen. C3-4: The disc height is well-preserved. Loss of disc signal is seen at this level. A mild degree of generalized disc osteophyte complex is seen. There is at least moderate right-sided and moderate left-sided facet hypertrophy. There is mild right-sided and no left-sided neural foraminal narrowing. No central canal narrowing is seen. C4-5: The disc height is well-preserved. Loss of disc signal is seen at this level. A mild degree of generalized disc osteophyte complex is seen. There is prominent right-sided and at least moderate left-sided facet hypertrophy. There is [id number] right-sided and no left-sided neural foraminal narrowing. Mild to moderate central canal narrowing is seen, with mild mass effect upon the ventral spinal cord. C5-6: At least moderate loss of disc height and disc signal can be seen. Moderate generalized disc osteophyte complex is seen. Neck is there is a central disc osteophyte protrusion. Moderate facet joint hypertrophy is seen. There is moderate right-sided and at least moderate left-sided neural foraminal narrowing. Moderate central canal narrowing is seen. There is associated mass effect upon the ventral spinal cord. C6-7: The disc height is well-preserved. Loss of disc signal is seen at this level. A mild degree of generalized disc osteophyte complex is seen. Moderate facet joint hypertrophy is seen. No significant neural foraminal or central canal narrowing can be seen. C7-T1: The disc height and disk signal are well-preserved. A mild degree of generalized disc osteophyte complex is seen. Mild facet joint hypertrophy is seen. There is mild left-sided and no right-sided neural foraminal narrowing. No central canal narrowing is seen. IMPRESSION: There are 2 enhancing nodules seen, which are stable compared to the prior MRI, which are consistent with schwannomas. No new masses or abnormal enhancement can be seen. Multiple levels of cervical spine degenerative change are seen, which are considered to be similar to the prior MRI. Dictated by: Bruce Marquez M.D. on 06/02/2023 at 17:30 Approved by: Bruce Marquez M.D. on 06/02/2023 at 17:39
--- NOTE | 2023-06-02 16:22 | DI.MRI.S_ITS ---
PROCEDURE: MR HEAD/BRAIN WO/W CON INDICATIONS: Schwannomatosis TECHNIQUE: Noncontrast axial T1 spin echo, axial T2 fast spin echo, sagittal and axial FLAIR, coronal T2 fast spin echo, axial gradient echo, axial diffusion and ADC through the brain. After the administration of contrast, axial and coronal and sagittal T1 spin echo with fat saturation through the brain. COMPARISON: [facility], MR, MR LUMBAR SPINE WO/W CON, 06/02/2023, 16:59. [facility], MR, MR THORACIC SPINE WO/W CON, 06/02/2023, 16:59. [facility], MR, MR CERVICAL SPINE WO/W CON, 06/02/2023, 16:59. [facility], MR, MR HEAD/BRAIN WO/W CON, 06/11/2022, 9:27. FINDINGS: Image quality: Diagnostic, with note made of motion artifact. CSF spaces: Basal cisterns are patent. No extra-axial fluid collections. Ventricles are normal in size and shape. Brain: There is a mildly enhancing nodule seen associated with the right choroid plexus, as on series 5, image 102 that measures up to 2.1 cm. There is hemosiderin deposition associated with this nodule. No additional intracranial masses or abnormal enhancement can be seen. No midline shift. There is cerebral volume loss for age. There is periventricular white matter chronic small vessel ischemic change. The brainstem appears normal. Diffusion-weighted images demonstrate no acute infarct. No chronic ischemic insults. Normal intravascular flow voids are present. Skull and face: Calvarial marrow is normal in signal. Orbits appear normal. Sinuses: Sinuses and mastoids appear clear. IMPRESSION: There is a 2.1 cm enhancing nodule associated with the right choroid plexus, which is nonspecific. No significant change compared to the prior MRI. Dictated by: Bruce Marquez M.D. on 06/02/2023 at 17:25 Approved by: Bruce Marquez M.D. on 06/02/2023 at 17:28
== END ==
PROVIDERS: PCP Registered Nurse Diabetes Educator; Referring Provider Neurological Surgery; Visit Provider Neurological Surgery
DX: Q85.03 Schwannomatosis (principal); M47.812 Spondylosis without myelopathy or radiculopathy, cervical region
CPT/HCPCS: 70553; 72156

== ENCOUNTER → 2023-06-16 10:59 | Outpatient (CLI) | payer MEDICARE, OTHER, SELFPAY ==
--- NOTE | 2023-06-16 11:01 | DI.RAD.S_ITS ---
PROCEDURE: XR SHOULDER RT MIN 2V INDICATIONS: Fall on Right Shoulder, Pain TECHNIQUE: 3 views of the shoulder were acquired. COMPARISON: None. FINDINGS: Bones: No fractures or dislocations. No suspicious bony lesions. Visualized ribs appear intact. Soft tissues: No suspicious soft tissue calcifications. IMPRESSION: No acute bony abnormality. If pain persists, followup imaging in 5-7 days is recommended to exclude occult fracture. Dictated by: Kylee Crain M.D. on 06/16/2023 at 13:07 Approved by: Kylee Crain M.D. on 06/16/2023 at 13:08
== END ==
PROVIDERS: PCP Registered Nurse Diabetes Educator; Referring Provider Physician Assistant Surgical; Visit Provider Physician Assistant Surgical
DX: S49.91XA Unspecified injury of right shoulder and upper arm, initial encounter (principal); W19.XXXA Unspecified fall, initial encounter
CPT/HCPCS: 73030

== ENCOUNTER → 2023-07-04 13:14 | Outpatient (CLI) | payer MEDICARE, OTHER, SELFPAY ==
--- NOTE | 2023-07-04 13:16 | DI.RAD.S_ITS ---
PROCEDURE: XR SHOULDER RT MIN 2V INDICATIONS: reeval TECHNIQUE: 3 views of the shoulder were acquired. COMPARISON: [facility], CR, XR SHOULDER RT MIN 2V, 06/16/2023, 11:00. FINDINGS: Bones: No fractures or dislocations. No suspicious bony lesions. Visualized ribs appear intact. Soft tissues: No suspicious soft tissue calcifications. IMPRESSION: No acute bony abnormality. Approved by: Jaguar Howard M.D. on 07/04/2023 at 19:43
== END ==
LOC: RAD 13:15
PROVIDERS: PCP Registered Nurse Diabetes Educator; Referring Provider Registered Nurse Diabetes Educator; Visit Provider Registered Nurse Diabetes Educator
DX: M25.511 Pain in right shoulder (principal)
CPT/HCPCS: 73030

== ENCOUNTER → 2023-07-30 15:47 | Outpatient (CLI) | payer MEDICARE, OTHER, SELFPAY ==
--- NOTE | 2023-07-30 | DI.MRI.S_ITS ---
PROCEDURE: MR HUMERUS LT WO/W CON INDICATIONS: schwannoma TECHNIQUE: Noncontrast coronal T1 spin echo and STIR, sagittal T1 spin echo with fat saturation and STIR, axial T1 spin echo and T2 fast spin echo with fat saturation. After the administration of contrast, axial/sagittal/coronal T1 spin echo with fat saturation through the left upper arm. COMPARISON: [facility], MR, MR SHOULDER RIGHT WITHOUT CONTRAST, 07/12/2023, 16:13. FINDINGS: Image quality: Excellent. Bones: [id number] left glenohumeral joint and acromioclavicular joint osteoarthritic changes are seen with joint space narrowing, subchondral sclerosis and small marginal osteophyte formation. No marrow edema. No fracture or dislocation. No area of abnormal intraosseous enhancement. Soft tissues: There is an oval fairly homogeneously T2 hyperintense and T1 hypointense mass involving medial upper arm soft tissue at the level of mid humeral shaft and measures up to 3.4 x 3.2 x 3.8 cm in size. After IV contrast infusion, fairly homogeneous contrast enhancement of this mass is noted. This mass is closely associated with the neurovascular bundle in the left upper arm at this level . No adjacent left upper arm muscle involvement is noted. No other area of abnormal soft tissue enhancement or drainable fluid collection is seen. IMPRESSION: 1. Finding is most consistent with a 3.4 x 3.2 x 3.8 cm schwannoma involving medial left upper arm soft tissue at the level of mid humeral shaft. No other enhancing soft tissue mass or drainable fluid collection. 2. No evidence of adjacent left upper arm muscle involvement. 3. No marrow edema. No abnormal intraosseous enhancement. No fracture or dislocation. Left shoulder joint osteoarthritis. Dictated by: Matthew Kumari M.D. on 08/01/2023 at 10:07 Approved by: Matthew Kumari M.D. on 08/01/2023 at 10:33
== END ==
PROVIDERS: PCP Registered Nurse Diabetes Educator; Referring Provider Neurological Surgery; Visit Provider Neurological Surgery
DX: D36.10 Benign neoplasm of peripheral nerves and autonomic nervous system, unspecified (principal)
CPT/HCPCS: 73220; A9579

== ENCOUNTER → 2023-08-04 10:37 | Outpatient (CLI) | payer MEDICARE, OTHER, SELFPAY ==
[2023-08-04 12:32] LABS: Free T4, Direct Thyroxine 1.29 ng/dL (0.78-2.19)
[2023-08-04 12:45] LABS: Thyroid Stimulating Hormone 1.67 uIU/mL (0.47-4.68)
== END ==
PROVIDERS: PCP Registered Nurse Diabetes Educator; Referring Provider Internal Medicine Endocrinology, Diabetes & Metabolism; Visit Provider Internal Medicine Endocrinology, Diabetes & Metabolism
DX: E05.00 Thyrotoxicosis with diffuse goiter without thyrotoxic crisis or storm (principal)
CPT/HCPCS: 36415; 84439; 84443; 84481

== ENCOUNTER → 2023-09-16 09:47 | Outpatient (CLI) | payer MEDICARE, OTHER, SELFPAY | PROVIDERS: PCP Registered Nurse Diabetes Educator; Referring Provider Psychiatry & Neurology Neurology; Visit Provider Psychiatry & Neurology Neurology | DX: Q85.00 Neurofibromatosis, unspecified (principal) | CPT/HCPCS: 80169 ==

== ENCOUNTER → 2023-10-25 16:20 | Outpatient (CLI) | payer MEDICARE, OTHER, SELFPAY ==
[2023-10-25 17:29] LABS: Add Manual Diff / Slide Review NO; Basophils Absolute Auto 100 /uL (0-100); Basophils Percent Auto 1.2 % (0-2); Eosinophils Absolute Auto 200 /uL (0-450); Eosinophils Percent Auto 2.7 % (2-4); Hemoglobin 12.1 g/dL (12.0-16.0); Lymphocytes Absolute Auto 2100 /uL (1100-4500); Lymphocytes Percent Auto 32.8 % (25-40); Mean Corpuscular HGB Conc 33.7 % (30-36); Mean Corpuscular Hemoglobin 30.4 PG (26-34); Mean Corpuscular Volume 90.2 fL (80-100); Monocytes Absolute Auto 600 /uL (0-900); Neutrophils Absolute Auto 3400 /uL (1500-7000); Neutrophils Percent Auto 53.3 % (50-75); Platelet Count 253 X10^3/uL (150-400); Red Blood Cell Count 3.99 X10^6/uL (4.0-5.2); Red Cell Distribution Width 13.9 % (11.6-14.8); White Blood Cell Count 6.4 X10^3/uL (4.5-11.0)
[2023-10-25 18:04] LABS: Alanine Aminotransferase 31 IU/L (<35); Albumin 3.9 g/dL (3.5-5.0); Albumin Globulin Ratio 1.6 (1.0-2.8); Alkaline Phosphatase 118 U/L (38-126); Aspartate Aminotransferase 35 IU/L (14-36); BUN Creatinine Ratio 34.6 (6-22); Bilirubin Total 0.3 mg/dL (0.2-1.3); Blood Urea Nitrogen 18 mg/dL (7-17); Calcium 8.9 mg/dL (8.4-10.2); Carbon Dioxide 25 mmol/L (22-32); Chloride 109 mmol/L (98-107); Estimated Glomerular Filt Rate > 60 mL/min (>60); Globulin 2.5 g/dL (1.7-4.1); Glucose 88 mg/dL (80-110); HEMOLYSIS < 15 (0-50); Potassium 4.1 mmol/L (3.4-5.1); Sodium 139 mmol/L (137-145); Total Protein 6.4 g/dL (6.3-8.2)
== END ==
PROVIDERS: PCP Registered Nurse Diabetes Educator; Referring Provider Psychiatry & Neurology Neurology; Visit Provider Psychiatry & Neurology Neurology
DX: D36.10 Benign neoplasm of peripheral nerves and autonomic nervous system, unspecified (principal); Q85.00 Neurofibromatosis, unspecified
CPT/HCPCS: 36415; 80053; 85025

== ENCOUNTER → 2024-04-22 16:24 | Outpatient (CLI) | payer MEDICARE, OTHER, SELFPAY ==
--- NOTE | 2024-04-22 16:26 | DI.MRI.S_ITS ---
PROCEDURE: MR CERVICAL SPINE WO/W CON INDICATIONS: BRAIN MASS / SCHWANNOMA TECHNIQUE: Noncontrast sagittal T1 spin echo and T2 fast spin echo, sagittal STIR, foraminal oblique sagittal T2 fast spin echo, axial gradient echo or T2 fast spin echo through the cervical spine. After the administration of contrast, axial and sagittal T1 spin echo with fat saturation through the cervical spine. COMPARISON: [facility], MR, MR THORACIC SPINE WO/W CON, 06/04/2022, 13:02. [facility], MR, MR CERVICAL SPINE WO/W CON, 06/04/2022, 13:02. [facility], MR, MR LUMBAR SPINE WO/W CON, 04/22/2024, 17:16. [facility], MR, MR THORACIC SPINE WO/W CON, 04/22/2024, 16:58. [facility], MR, MR CERVICAL SPINE WO/W CON, 06/02/2023, 16:59. FINDINGS: Image quality: Excellent. Alignment and curvature: There is reversal cervical curvature with apex at C5. Trace anterolisthesis C4 on C5 and trace retrolisthesis of C5 on C6. Marrow: Marrow is normal in overall signal, without suspicious enhancement. Spinal cord: Previously identified extra-axial mass adjacent to the cord at C3 is again identified. It measures 5 mm AP x 5 mm transverse by 7 mm craniocaudal compared to 4 mm AP by 4 mm transverse by 6 mm craniocaudal. The 2nd focus also extra-axial at the level of C7 measures 7 mm AP x 5 mm transverse by 7 mm craniocaudal compared to 6 mm AP x 5 mm transverse by 6 mm craniocaudal. Paraspinous soft tissues: Incompletely visualized left paraspinous mass within the upper thoracic spine is partially visualized again. Multilevel degenerative changes are stable. IMPRESSION: 2 extra-axial enhancing foci demonstrating very minimal interval increase in size compared to prior exam. As previously noted, these likely represent schwannomas. Incompletely visualized mass appearing within the paraspinous region of the upper thoracic spine is again noted. Dictated by: Che Whitfield M.D. on 04/23/2024 at 21:21 Approved by: Che Whitfield M.D. on 04/23/2024 at 21:31
--- NOTE | 2024-04-22 16:26 | DI.MRI.S_ITS ---
PROCEDURE: MR HEAD/BRAIN WO/W CON INDICATIONS: BRAIN MASS / SCHWANNOMA TECHNIQUE: Noncontrast axial T1 spin echo, axial T2 fast spin echo, sagittal and axial FLAIR, coronal T2 fast spin echo, axial gradient echo, axial diffusion and ADC through the brain. After the administration of contrast, axial and coronal and sagittal T1 spin echo with fat saturation through the brain. COMPARISON: [facility], MR, MR HEAD/BRAIN WO/W CON, 06/02/2023, 16:59. FINDINGS: Image quality: Excellent. CSF spaces: Basal cisterns are patent. No extra-axial fluid collections. Ventricles are stable in size. Previous enhancing mass within the right choroid plexus. It demonstrates mild enlargement measuring 3.0 c by 0.7 cm compared to 2.2 x 0.5 cm. Brain: No midline shift. No intracranial bleeds. There is cerebral volume loss for age. There is periventricular white matter chronic small vessel ischemic change. The brainstem appears normal. Diffusion-weighted images demonstrate no acute infarct. No chronic ischemic insults. Normal intravascular flow voids are present. Skull and face: Calvarial marrow is normal in signal. Orbits appear normal. Sinuses: Sinuses and mastoids appear clear. IMPRESSION: Stable appearance of enhancing choroid plexus mass without obstructive hydrocephalus. Scattered areas subcortical white matter hyperintensity most consistent with chronic microvascular ischemia. Dictated by: Che Whitfield M.D. on 04/23/2024 at 21:16 Approved by: Che Whitfield M.D. on 04/23/2024 at 21:21
== END ==
PROVIDERS: PCP Registered Nurse Diabetes Educator; Referring Provider Psychiatry & Neurology Neurology; Visit Provider Psychiatry & Neurology Neurology
DX: Q85.03 Schwannomatosis (principal); G93.89 Other specified disorders of brain; D36.10 Benign neoplasm of peripheral nerves and autonomic nervous system, unspecified
CPT/HCPCS: 70553; 72156; A9579

== ENCOUNTER → 2024-04-23 16:20 | Outpatient (CLI) | payer MEDICARE, OTHER, SELFPAY ==
--- NOTE | 2024-04-23 16:21 | DI.MRI.S_ITS ---
PROCEDURE: MR THORACIC SPINE WO/W CON INDICATIONS: SCHWANNOMA TECHNIQUE: Noncontrast sagittal T1 spin echo and T2 fast spin echo, sagittal STIR, axial T1 and T2 fast spin echo through the thoracic spine. After the administration of contrast, axial and sagittal T1 spin echo with fat saturation through the thoracic spine. COMPARISON: [facility], MR, MR THORACIC SPINE WO/W CON, 06/04/2022, 13:02. [facility], MR, MR THORACIC SPINE WO/W CON, 06/02/2023, 16:59. FINDINGS: Image quality: Excellent. Alignment and curvature: There is normal bony alignment. Marrow: Marrow is of normal overall signal. No acute vertebral body compression fractures. Spinal cord: Visualized spinal cord is of normal signal and size, without abnormal enhancement. Paraspinous soft tissues: As identified prior exam, extra-axial enhancing masses are identified at T4, T6-7, T10-11. Cystic paraspinous masses which demonstrate rim enhancement are also identified T3-4, adjacent to the right hemidiaphragm as well as inferior to the right hemidiaphragm are present. They are unchanged in size. Simple left renal cyst is present.. Miscellaneous: Central canal and foramina appear widely patent at all scanned levels. IMPRESSION: Stable appearance masses within the thoracic spinal canal as well as paraspinous tissues. As previously noted, these appear consistent with schwannomas. Dictated by: Che Whitfield M.D. on 04/23/2024 at 21:31 Approved by: Che Whitfield M.D. on 04/23/2024 at 21:34
--- NOTE | 2024-04-23 16:21 | DI.MRI.S_ITS ---
PROCEDURE: MR LUMBAR SPINE WO/W CON INDICATIONS: SCHWANNOMA TECHNIQUE: Noncontrast sagittal T1 spin echo and T2 fast spin echo, sagittal STIR, axial T1 and T2 fast spin echo through the lumbar spine. In cases with scoliosis, additional coronal T2 fast spin echo may be performed. After the administration of contrast, sagittal and axial T1 spin echo with fat saturation through the lumbar spine. COMPARISON: [facility], MR, MR LUMBAR SPINE WO/W CON, 06/02/2023, 16:59. FINDINGS: Image quality: Excellent. Alignment and curvature: There is normal bony alignment. Marrow: Marrow is of normal overall signal. No acute vertebral body compression fractures. No suspicious marrow enhancement. Spinal cord: Conus medullaris terminates at the L1 level. Visualized spinal cord demonstrates normal signal, without suspicious enhancement. Paraspinous soft tissues: As identified prior exam, right retroperitoneal mass with enhancing nodular thickening is present. Inferior to this mass a similar appearing complex cystic structure is present also unchanged. Within the spinal canal, multiple extra medullary enhancing lesions are identified. Mass at T11-12 appears to been removed. Focus at L4 is not as well seen. However this may be partially obscured by postsurgical fusion changes. Degenerative and postsurgical changes are stable. IMPRESSION: Multiple extra-axial enhancing foci are identified with the enhancing focus at T11-12 appearing to been removed as it is no longer visualized. Retroperitoneal masses are stable. Multilevel degenerative changes overall stable. Dictated by: Che Whitfield M.D. on 04/23/2024 at 21:34 Approved by: Che Whitfield M.D. on 04/23/2024 at 21:40
== END ==
PROVIDERS: PCP Registered Nurse Diabetes Educator; Referring Provider Psychiatry & Neurology Neurology; Visit Provider Psychiatry & Neurology Neurology
DX: Q85.03 Schwannomatosis (principal); D36.10 Benign neoplasm of peripheral nerves and autonomic nervous system, unspecified; M47.816 Spondylosis without myelopathy or radiculopathy, lumbar region; Z98.1 Arthrodesis status
CPT/HCPCS: 72157; 72158; A9579

== ENCOUNTER → 2024-06-10 11:43 | Outpatient (CLI) | payer MEDICARE, OTHER, SELFPAY ==
[2024-06-10 13:07] LABS: T4 Total Thyroxine 8.25 ug/dL (5.5-11.0)
[2024-06-10 13:21] LABS: Thyroid Stimulating Hormone 1.32 uIU/mL (0.47-4.68)
== END ==
PROVIDERS: PCP Registered Nurse Diabetes Educator; Referring Provider Internal Medicine Endocrinology, Diabetes & Metabolism; Visit Provider Internal Medicine Endocrinology, Diabetes & Metabolism
DX: E05.00 Thyrotoxicosis with diffuse goiter without thyrotoxic crisis or storm (principal)
CPT/HCPCS: 36415; 84436; 84443

== ENCOUNTER → 2024-11-04 14:17 | Outpatient (CLI) | payer MEDICARE, OTHER, SELFPAY ==
--- NOTE | 2024-11-04 14:19 | DI.RAD.S_ITS ---
PROCEDURE: XR DEXA AXIAL SKELETON INDICATIONS: reeval COMPARISON: [facility], CR, XR DEXA AXIAL SKELETON, 06/25/2020, 15:25. FINDINGS: Left Femoral Neck: Bone mineral density 0.591 (previously 0.814) g/cm2, T score -2.3 (previously -1.6). Left Hip: Bone mineral density 0.698 (previously 0.810) g/cm2, T score -2.0 (previously -1.6). Left Forearm: Bone mineral density 0.498 g/cm2, T score -3.3. Fracture Risk Calculation (when applicable): 10-year fracture risk of a major osteoporotic fracture 31 percent and of a hip fracture 8.5 percent. (T score greater or equal to -1.0 to: NORMAL) (T score from -1.1 to -2.4: OSTEOPENIA) (T score less than or equal to -2.5: OSTEOPOROSIS) IMPRESSION: Osteoporosis--- recommend repeat DEXA in 2 years or less for reassessment of response to treatment. Follow-up guidelines as follows: Osteoporosis: Consider a repeat DEXA and Vertebral Fracture Assessment (VFA) exam in 2 years or sooner if medically necessary, to reassess this patient's status. Osteopenia: Consider a repeat DEXA in 2-3 years to reassess this patient's status, or if there is a new clinical indication. Normal: Consider a repeat DEXA in 5 years or sooner, or if there is a new clinical indication. All treatment decisions require clinical judgment and consideration of individual patient factors, including patient preferences, comorbidities, previous drug use, risk factors not captured in the FRAX model (e.g., frailty, falls, vitamin D deficiency, increased bone turnover, interval significant decline in bone density ) and possible under- or over-estimation of fracture risk by FRAX. In addition, the NOF Guide recommends that FDA-approved medical therapies be considered in postmenopausal women and men age >= 50 years with a: * Hip or vertebral (clinical or morphometric) fracture * T-score of <=-2.5 at the spine or hip * Ten-year fracture probability by FRAX of >= 3% for hip fracture or >=20% for major osteoporotic fracture. Dictated by: Dominguez Maria M.D. on 11/04/2024 at 19:22 Approved by: Dominguez Maria M.D. on 11/04/2024 at 19:26
== END ==
PROVIDERS: PCP Registered Nurse Diabetes Educator; Referring Provider Registered Nurse Diabetes Educator; Visit Provider Registered Nurse Diabetes Educator
DX: M81.0 Age-related osteoporosis without current pathological fracture (principal); Z78.0 Asymptomatic menopausal state
CPT/HCPCS: 77080; 77081

== ENCOUNTER → 2025-01-28 15:49 | Outpatient (CLI) | payer MEDICARE, OTHER, SELFPAY ==
[2025-01-28 17:43] LABS: Thyroid Stimulating Hormone 1.29 uIU/mL (0.47-4.68)
[2025-01-28 18:36] LABS: Free T4, Direct Thyroxine 1.26 ng/dL (0.78-2.19)
== END ==
PROVIDERS: PCP Registered Nurse Diabetes Educator; Referring Provider Internal Medicine Endocrinology, Diabetes & Metabolism; Visit Provider Internal Medicine Endocrinology, Diabetes & Metabolism
DX: E05.00 Thyrotoxicosis with diffuse goiter without thyrotoxic crisis or storm (principal)
CPT/HCPCS: 36415; 84439; 84443

== ENCOUNTER → 2025-02-08 09:49 | Outpatient (CLI) | payer MEDICARE, OTHER, SELFPAY ==
--- NOTE | 2025-02-08 09:50 | DI.MRI.S_ITS ---
PROCEDURE: MR HUMERUS LT WO/W CON INDICATIONS: SCHWANNOMATOSIS TECHNIQUE: Noncontrast coronal T1 spin echo and STIR, sagittal T1 spin echo with fat saturation and STIR, axial T1 spin echo and T2 fast spin echo with fat saturation. After the administration of contrast, axial/sagittal/coronal T1 spin echo with fat saturation through the left humerus . COMPARISON: [facility], MR, MR THORACIC SPINE WO/W CON, 04/22/2024, 16:58. [facility], MR, MR HUMERUS LT WO/W CON, 07/30/2023, 16:19. FINDINGS: Image quality: Excellent. Bones: Mild osteoarthritis of the glenohumeral joint with articular cartilage thinning in fraying. No discrete, high grade, full-thickness articular cartilage defect. Moderate osteoarthrosis of the acromioclavicular joint with small peripheral osteophytosis. No glenohumeral joint effusion. No elbow joint effusion. No suspicious marrow replacing process. No fracture. Soft tissues: Redemonstrated 3.9 by 3.3 x 3.1 cm (CC x AP x Trans) T1 isointense to skeletal muscle, a T2 hyperintense, diffusely enhancing lesion in the medial upper arm at the mid humeral shaft is similar in size, previously 3.8 by 3.4 x 3.2 cm (CC x AP x Trans) on 07/30/2023. No other soft tissue mass lesion within the upper arm. No aggressive soft tissue invasion. The lesion is mild mass effect on the brachial neurovascular bundle. Partially visualized peripherally enhancing lesion along the left lung apex mild is similar in size and appearance when compared to prior exam on 04/22/2024. The scanned muscles demonstrate normal overall bulk and internal signal. Subcutaneous tissues appear normal as well. 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 Dictated by: Shravna Cardoso M.D. on 02/10/2025 at 11:31 Approved by: Shravan Cardoso M.D. on 02/10/2025 at 11:55
== END ==
PROVIDERS: PCP Registered Nurse Diabetes Educator; Referring Provider Neurological Surgery; Visit Provider Neurological Surgery
DX: Q85.03 Schwannomatosis (principal); M19.012 Primary osteoarthritis, left shoulder
CPT/HCPCS: 73220; A9579